=== PATIENT | male | born 1960 | race Caucasian/White ===

== ENCOUNTER 2020-03-16 10:58 | Emergency (ER) | payer OTHER, SELFPAY ==
[2020-03-16 11:19] VITALS: BP 148/87; PULSE 94; RESP 18; TEMP 36.9; O2SAT 97; BMI 23.5
--- NOTE | 2020-03-16 11:44 | ED.GENADULT ---
HPI - General Adult General Chief complaint: General Medical Stated complaint: sore throat Time Seen by Provider: 03/16/20 11:34 Source: patient Mode of arrival: ambulatory Limitations: no limitations History of Present Illness HPI narrative: 60 y/o male presenting with worsening sore throat for the last 4 days. He states he feels it is swollen on the left side of his neck. He states it hurts to swallow but he is able to eat and drink normally. No change in voice. Handling secretions normally. No fevers, chills, chest pain, SOB, cough. No exposure to COVID-19. MD complaint: sore thraot Onset (ago): day(s) (4) Location: neck Radiation: non-radiation Severity: severe Severity scale (1-10): 7 Quality: aching and sharp Pain Consistency: constant Relieving factors: none Exacerbating factors: eating Associated symptoms: denies other symptoms Treatments prior to arrival: none Related Data Previous Rx's Medication Instructions Recorded clindamycin HCl 300 mg PO Q6H 10 Days #40 cap 03/16/20 ibuprofen 600 mg PO Q8H PRN #20 tab 03/16/20 Allergies Allergy/AdvReac Type Severity Reaction Status Date / Time penicillin V Allergy Unknown reaction Verified 12/07/19 00:00 as a baby Penicillins Allergy Unknown UNKNOWN-CHILDHOOD Unverified 12/24/19 15:02 REACTION potassium Allergy Unknown Verified 12/07/19 00:00 Review of Systems Review of Systems: Constitutional: No Fever, No Chills ENT/Mouth: + sore throat, No Rhinorrhea, No Swallowing Difficulty, +painful swallowing Eyes: No Eye Pain, No Swelling, No Redness Cardiovascular: No Chest Pain, No SOB Respiratory: No Cough, No Sputum, No Wheezing, No dyspnea Gastrointestinal: No Nausea, No Vomiting, No Diarrhea, No abdominal Pain Musculoskeletal: No joint pain, No Myalgias Skin: No Skin Lesions, No rash Neuro: No Weakness, No Numbness, No Dizziness, No Headache Heme/Lymph: No Lymphadenopathy PMFSH Past Medical History Attestation statement: The following information was validated with the patient. Social History Social History Advance Directives: No Advance Directives Information Provided: Yes Physical Exam Vital Signs: Vital Signs: Last Vital Signs Temp 98.4 F 03/16/20 11:19 Pulse 94 03/16/20 11:19 Resp 18 03/16/20 11:19 BP 148/87 H 03/16/20 11:19 Pulse Ox 97 03/16/20 11:19 Body Mass Index 23.5 Appearance: Alert. Oriented X3. No acute distress. ENT: left sided peritonsillar swelling and erythema, no exudates. uvula midline. normal voice, handing secretions normal. dentition normal. Neck: Normal inspection. submandibular LAD, mild on the left CVS: Normal heart rate and rhythm. Pulses normal. Respiratory: No respiratory distress. Breath sounds normal. Skin: Skin warm and dry. Normal skin color. Normal skin turgor. No rashes. Extremities: No lower extremity edema. Neuro: Oriented X 3. Non-focal Course Course Course Narrative: 60 y/o male presenting with sore throat - exam consistent with evolving peritonsillar abscess. Less likely strep thoat. No hypoxia, no muffled voice or difficulty handling secretions. No indication to attempt drainage at this time. d/w Dr. Field. Given Clindamycin and Decadron here. Will have him see ENT and instructed to return to the ER if symptoms worsen, which is agreeable to. He is stable for discharge with antibiotics. Critical Care Time Critical Care Time Critical Care Time: No Discharge Plan Discharge Clinical Impression: Peritonsillar abscess Patient Disposition: Home, Self-Care Instructions: Peritonsillar Abscess (ED) Additional Instructions: Your exam is consistent with the start of an abscess around your tonsil on the left side. You are being started on antibiotics for this. If you have worsening pain or swelling, or if you develop difficulty swallowing, difficulty handling your own saliva, voice changes, fevers or any other concerning symptom come back to the ER for futher evaluation. Follow up with Ear, Nose & Throat doctor. Follow up with your doctor this week. Prescriptions: New clindamycin HCl 300 mg capsule 300 mg PO Q6H 10 Days Qty: 40 RF: 0 ibuprofen 600 mg tablet 600 mg PO Q8H PRN (Reason: fever or pain) Qty: 20 RF: 0 Referrals: Sigifredo Ibarra [Physician] - 2 days Interventions: ED Discharge Assessment Last Done: 03/16/20 12:14 Discharge Date/Time: 03/16/20 12:14
[2020-03-16] MEDS: dexAMETHasone 2 MG TABLET 10 MG PO (12:03)
== END 2020-03-16 12:14 | disposition home or self-care (01) ==
PROVIDERS: Emergency Provider Emergency Medicine; PCP Internal Medicine
DX: J36 Peritonsillar abscess (principal)
CPT/HCPCS: 87071; 87880; 99283; J8540

== ENCOUNTER 2020-11-05 17:03 | Emergency (ER) | payer OTHER, SELFPAY ==
[2020-11-05 17:10] VITALS: BP 167/77; PULSE 105; RESP 18; TEMP 36.8; O2SAT 96; BMI 26.6
--- NOTE | 2020-11-05 18:27 | ED_ITS ---
HPI - Wound/Laceration General Chief Complaint: Wound/Laceration Stated Complaint: lac Time Seen by Provider: 11/05/20 18:20 Source: patient Mode of arrival: ambulatory Limitations: no limitations History of Present Illness HPI narrative: 60-year-old male presents with laceration to his left hand. Patient slipped with a ammonia box tender and accidentally cut his hand. Does not know when his last Tdap was given. He did apply a pressure dressing however bleeding continues. Does not report any other symptoms at this time. Onset (ago): hour(s) (Within the hour of arrival) Extremity Location: left: hand Place: home Patient tetanus UTD: No Context: accidental Associated symptoms: pain Treatments prior to arrival: bandage Related Data Previous Rx's Medication Instructions Recorded clindamycin HCl 300 mg capsule 300 mg PO Q6H 10 Days #40 cap 03/16/20 ibuprofen 600 mg tablet 600 mg PO Q8H PRN #20 tab 03/16/20 Allergies Allergy/AdvReac Type Severity Reaction Status Date / Time penicillin V Allergy Unknown reaction Verified 11/05/20 17:10 as a baby Penicillins Allergy Unknown UNKNOWN-CHILDHOOD Unverified 11/05/20 17:10 REACTION potassium Allergy Unknown Unknown Verified 11/05/20 17:10 Review of Systems Review of Systems: Constitutional: No Fever, No Chills ENT/Mouth: No Ear Pain, No Hoarseness, No sore throat Eyes: No Eye Pain, No Swelling, No Redness, No Foreign Body Cardiovascular: No Chest Pain, No SOB Respiratory: No Cough, No Dyspnea Gastrointestinal: No Nausea, No Vomiting, No Diarrhea, No abdominal Pain Genitourinary: No Dysuria, No Hematuria Musculoskeletal: positive left hand pain, No Myalgias, No Joint Swelling Skin: Positive laceration to left hand, Skin lacerations, No rash Neuro: No Weakness, No Numbness, No Paresthesias, No Loss of Consciousness, No Dizziness, No Headache Psych: No Anxiety/Panic, No Depression Heme/Lymph: no easy bruising, no Lymphadenopathy Endocrine: No Polyuria, No Polydipsia Yes all other systems are reviewed and are negative [facility] Past Medical History Attestation statement: The following information was validated with the patient. Source: old records reviewed Medical History Diabetes Pneumonia Surgical History History of hand surgery Social History Social History Advance Directives: No Advance Directives Information Provided: No Physical Exam Vital Signs: Vital Signs: Last Vital Signs Temp 98.3 F 11/05/20 17:10 Pulse 105 H 11/05/20 17:10 Resp 18 11/05/20 17:10 BP 167/77 H 11/05/20 17:10 Pulse Ox 96 11/05/20 17:10 Body Mass Index 26.6 Appearance: Alert. Oriented X3. No acute distress. Eyes: Pupils equal, round and reactive to light. ENT: Pharynx normal. Neck: Normal inspection. Neck supple. CVS: Normal heart rate and rhythm. Pulses normal. Respiratory: No respiratory distress. Breath sounds normal. Abdomen: Soft and nontender. Skin: 4 cm laceration to the thenar process left side, Skin warm and dry. Normal skin color. Normal skin turgor. Extremities: No lower extremity edema. Moves all extremities against resistance, has brisk capillary refill and equal pulses to the upper extremities . Full range of motion to all digits, strength 5/5, no indication of tendon injury. Neuro: No motor deficit. No sensory deficit. Cranial nerves 2-12 intact, no focal neural deficits Course Course Course Narrative: 60-year-old male presents with laceration to the left thenar process. Will update Tdap vaccine. Please refer to procedure note for full details. Patient has full range of motion, no indication of tendon injury to the digits, brisk capillary refill in equal pulses to bilateral extremities. Prepped and draped in sterile fashion. Irrigated with copious amounts of normal saline with Betadine cleanse. Approximately 5 mL of blood loss, patient tolerated procedure well. Approximately 30 minutes after laceration repair, brisk capillary refill and full range of motion continues. Neurovascularly intact. Patient does understand that he must return in 10 days for suture removal. Patient verbalized understanding of and agrees to plan of care. MDM - Wound/Laceration Differential Diagnosis Differential diagnosis: Likely laceration Medical Records Attestation: I reviewed the patient's medical records. Procedures Laceration Laceration 1: Site: hand Side (If applicable): left Description: linear Depth: simple, single layer Local Anesthetic: lidocaine 2% Amount of anesthesia used (mL): 7 Pre-repair: wound explored, irrigated extensively and deep structures intact Skin layer closed with: nylon Size (cm): 5-0 Number of sutures: 9 Technique: simple, interrupted Discharge Plan Discharge Clinical Impression: Laceration Patient Disposition: Home, Self-Care Instructions: Care For Your Stitches (ED), Laceration (ED) Additional Instructions: You were evaluated for laceration to left hand. We applied 9 sutures. Please follow suture instructions. Return in 10 days to have sutures removed. We updated your Tdap vaccine today. Thank you for choosing this emergency department for evaluation. Please follow-up with primary care physician as needed. Return to the emergency department for any new, concerning, or worsening symptoms. Prescriptions: No Action clindamycin HCl 300 mg capsule 300 mg PO Q6H 10 Days Qty: 40 RF: 0 ibuprofen 600 mg tablet 600 mg PO Q8H PRN (Reason: fever or pain) Qty: 20 RF: 0 Interventions: ED Discharge Assessment Last Done: 11/05/20 19:37 Discharge Date/Time: 11/05/20 19:39
[2020-11-05] MEDS: Diphth,Pertus(ACell),Tet Adult 0.5 ML SYRINGE IM (19:26)
[2020-11-05] MEDS: Lidocaine HCl 2 % MPF 5 ML VIAL 10 ML SUBCUT (19:27)
== END 2020-11-05 19:39 | disposition home or self-care (01) ==
PROVIDERS: Emergency Provider Emergency Medicine Emergency Medical Services; PCP Internal Medicine
DX: S61.412A Laceration without foreign body of left hand, initial encounter (principal); W27.8XXA Contact with other nonpowered hand tool, initial encounter; Y93.89 Activity, other specified; Y92.9 Unspecified place or not applicable; Y99.9 Unspecified external cause status
CPT/HCPCS: 12002; 90471; 90715; 99284

== ENCOUNTER 2021-01-30 09:28 | Outpatient (REF) | payer MEDICARE, OTHER, SELFPAY | END 2021-01-30 09:29 | disposition home or self-care (01) | LOC: HO.LAB 09:28 | PROVIDERS: PCP Internal Medicine; Visit Provider Internal Medicine | DX: Z20.822 Contact with and (suspected) exposure to COVID-19 (principal) | CPT/HCPCS: C9803; U0003; U0005 ==

== ENCOUNTER 2021-02-24 11:16 | Outpatient (REF) | payer MEDICARE, OTHER, SELFPAY | END 2021-02-24 11:17 | disposition home or self-care (01) | LOC: HO.LAB 11:16 | PROVIDERS: PCP Internal Medicine; Visit Provider Internal Medicine | DX: Z20.822 Contact with and (suspected) exposure to COVID-19 (principal) | CPT/HCPCS: C9803; U0003; U0005 ==

== ENCOUNTER 2021-03-01 11:08 | Outpatient (REF) | payer MEDICARE, OTHER, SELFPAY | END 2021-03-01 11:09 | disposition home or self-care (01) | LOC: HO.LAB 11:08 | PROVIDERS: Visit Provider Internal Medicine | DX: Z20.822 Contact with and (suspected) exposure to COVID-19 (principal) | CPT/HCPCS: C9803; U0003; U0005 ==

== ENCOUNTER 2021-05-30 09:28 | Outpatient (REF) | payer MEDICARE, OTHER, SELFPAY ==
--- NOTE | ~2021-05-30 | CT_ITS ---
EXAMINATION: CT CHEST SCREENING CLINICAL INFORMATION: Current smoker. 53 pack-year history COMPARISON: Previous CT scans most recent October 2019 TECHNIQUE: Multidetector volumetric CT imaging of the chest is performed without contrast using low dose technique. Additional 2D coronal and sagittal reformatted images and axial 3D maximum intensity projection (MIP) images are generated on the CT workstation. This CT examination was performed using dose optimization techniques as appropriate, variously including the following: *Automated exposure control *Adjustment of mA and/or kV according to patient size (this includes techniques or standardized protocols for targeted exams where dose is matched to indication/reason for exam; i.e. extremities or head) *Use of iterative reconstruction technique DLP: 68 mGy-cm FINDINGS: LUNGS: There is evidence of mild emphysema. There is dependent atelectasis seen at the lung bases. The lungs are otherwise clear. MEDIASTINUM: There is significant coronary artery calcification. The mediastinum is otherwise normal. PLEURA: There is no pleural effusion. No pleural mass or thickening. AXILLA: No chest wall mass or enlarged axillary lymph nodes. The previously identified. Ill-defined area of increased attenuation in the subcutaneous fat of the left upper lateral chest pitt on October 2019 exam is no longer seen. UPPER ABDOMEN: Unremarkable OSSEOUS STRUCTURES: There are degenerative changes of the spine. CT/CT lung screening IMPRESSION: Mild emphysema. No pulmonary nodule. Significant coronary artery calcification. ASSESSMENT: Lung-RADS category 1S: Negative RECOMMENDATION: Annual low-dose chest CT follow-up recommended. S for significant coronary artery calcification.
== END 2021-05-30 09:29 | disposition home or self-care (01) ==
LOC: HO.CT 09:28
PROVIDERS: Visit Provider Physician Assistant Medical
DX: Z12.2 Encounter for screening for malignant neoplasm of respiratory organs (principal); Z87.891 Personal history of nicotine dependence
CPT/HCPCS: 71271

== ENCOUNTER → 2021-09-21 14:58 | Outpatient (BNVA) | payer MEDICARE, OTHER, SELFPAY | PROVIDERS: PCP Internal Medicine; Visit Provider Orthopaedic Surgery | DX: M19.012 Primary osteoarthritis, left shoulder (principal); M19.011 Primary osteoarthritis, right shoulder; M75.41 Impingement syndrome of right shoulder; E11.9 Type 2 diabetes mellitus without complications | CPT/HCPCS: 20610; 99202; J1100 ==

== ENCOUNTER → 2021-11-17 09:56 | Outpatient (BNVA) | payer MEDICARE, OTHER, SELFPAY | PROVIDERS: PCP Internal Medicine; Visit Provider Orthopaedic Surgery | DX: M75.41 Impingement syndrome of right shoulder (principal); M19.012 Primary osteoarthritis, left shoulder; E11.9 Type 2 diabetes mellitus without complications | CPT/HCPCS: 20610; 99212; J1100 ==

== ENCOUNTER 2021-12-05 10:00 | Outpatient (RCR) | payer MEDICARE, OTHER, SELFPAY ==
--- NOTE | 2021-10-10 11:14 | MHC.PT.EP ---
[facility] [place] Office [place] Office [place] Office [address] Renu Mancia [address] [phone] F: [phone] F: [phone] F: [phone] F: [phone] Physical Therapy Plan of Care Date of Evaluation: Date of Surgery: n/a Diagnosis: B OA of shoulders Assessment: Patient is a 61 year old male presenting to PT with complaints of pain in his B shoulders. Pt reports onset of pain began several years ago due to insidious onset but possibly related to an old volleyball injury. He presents today with impairments in pain, ROM, shoulder strength, and posture. 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 Pt expresses penitentiary goal of reducing pain, and is motivated to work towards this in PT. Clinical presentation today is most consistent with signs and sx associated with possible OA and RC tendonitis and pt will benefit from skilled PT to address the following problems and impairments noted upon evaluation: pain, ROM, shoulder strength, and posture. These problems limit the patient with the following functional activities: reaching, lifting, ADLs. The prescribed treatment plan of care is medically necessary. Co-morbidities of diabetes were identified and taken into considerations of plan of care. Pt was educated on HEP, role of PT, prognosis, POC. Frequency and Duration: The patient will be seen 2 x week x 4 weeks Short Term Goals: Pt will demonstrate improved ROM by 20 degrees B for flexion and abd in 2 weeks. Pt will demonstrate 5/5 MMT strength B in all directions with min to no pain in 2 weeks. Pt will demonstrate improved postural awareness by sitting with biomechanically correct posture without cues throughout session to improve overall postural function in 2 weeks. Usp Goals: Pt will demonstrate improved SPADI by 13 points in 4 weeks for improved overall functional mobility. Pt will demonstrate ability to reach OH with min to no pain in 4 weeks for improved role at home. Pt will demonstrate ability to complete ADLs with min to no pain in 4 weeks for return to PLOF. Treatment Plan: Modalities to reduce pain, spasms and effusion. Manual therapy to restore motion and function. Therapeutic exercise to improve strength and flexibility. Neuromuscular re-education for posture and balance. Therapeutic activities to return to functional activities of daily living. Electronically signed by: Alyssa Huang, PT, DPT, ATC Please sign and return to therapist. Thank you for your referral.
--- NOTE | 2021-12-05 10:55 | MHC.PT.DC ---
[facility] [place] Office [place] Office [place] Office [address] Renu Mancia [address] [phone] F: [phone] F: [phone] F: [phone] F: [phone] Physical Therapy Discharge Report Diagnosis: B OA of shoulders Date of Surgery: n/a Date of Evaluation: 10/10/21 Date of Discharge: 12/05/21 Treatments to Date: 11 Cancellations to Date: 2 No Shows to Date: 0 Discharge Status: Achieved Goals Improved Function Independent with HEP Discharge Summary: Pt has made good progress since beginning skilled PT. 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 Reviewed importance of continued compliance with HEP to maintain all gains made thus far. At this time pt has maximized skilled PT and skilled PT is no longer indicated at this time. Pt in agreement with d/c today. Electronically signed by: Alyssa Huang, PT, DPT, ATC Please sign and return to therapist. Thank you for your referral.
== END 2021-12-05 10:56 | disposition home or self-care (01) ==
LOC: HO.PTCHIC 10:00
PROVIDERS: PCP Internal Medicine; Visit Provider Orthopaedic Surgery
DX: M19.012 Primary osteoarthritis, left shoulder (principal); M19.011 Primary osteoarthritis, right shoulder
CPT/HCPCS: 97110; 97140; 97161

== ENCOUNTER 2022-05-17 12:00 | Outpatient (REF) | payer MEDICARE, SELFPAY ==
--- NOTE | ~2022-05-17 | XR_ITS ---
EXAMINATION: XR SHOULDER, LEFT CLINICAL INFORMATION: Left shoulder pain COMPARISON: None TECHNIQUE: Three views of the left shoulder. FINDINGS: Glenohumeral narrowing with marginal osteophytes. No fracture or dislocation. Moderate acromioclavicular osteoarthritis. XR/XR shoulder LT min 2V IMPRESSION: Moderate glenohumeral and acromioclavicular osteoarthritis. No fracture.
== END 2022-05-17 12:01 | disposition home or self-care (01) ==
LOC: HO.HMGCX 12:00
PROVIDERS: PCP Internal Medicine; Visit Provider Internal Medicine
DX: M25.512 Pain in left shoulder (principal)
CPT/HCPCS: 73030

== ENCOUNTER 2022-12-06 13:41 | Outpatient (REF) | payer MEDICARE, MEDICAID, SELFPAY ==
--- NOTE | ~2022-12-06 | US_ITS ---
EXAMINATION: US ABDOMEN LIMITED CLINICAL INFORMATION: Right inguinal pain. COMPARISON: None available. TECHNIQUE: Real-time imaging of the area of concern in the right lower quadrant as indicated by the patient. FINDINGS: The cutaneous, subcutaneous, muscular and fascial planes are unremarkable. The vascular structures show normal Doppler flow, without aneurysm formation. No mass or fluid collection is seen. There is no lymphadenopathy. No foreign body is seen. US/US abdomen limited IMPRESSION: Unremarkable examination.
== END 2022-12-06 13:42 | disposition home or self-care (01) ==
LOC: HO.US 13:41
PROVIDERS: PCP Internal Medicine; Visit Provider Family Medicine
DX: R10.31 Right lower quadrant pain (principal)
CPT/HCPCS: 76705

== ENCOUNTER 2022-12-13 13:37 | Outpatient (AMB) | payer MEDICARE, MEDICAID, SELFPAY ==
--- NOTE | 2022-12-13 13:39 | MHC.OFFVIS ---
Intake Vital Signs 12/13/22 13:42 Height 5 ft 6 in Weight 160 lb BMI 25.8 BP 125/80 Blood Pressure Location Rt brachial Position Sitting Pulse 98 Intake Visit Reasons: Right Inguinal Pain Intake Note: Patient referred for [facility]. Reports it was previously surgically excised by Dr. Barrow yrs ago. C/o pain and discomfort while going up and down stairs. Station Worker Required: No Accompanied by: Self / Same As Patient Allergies penicillin V Allergy (Unknown, Verified 12/13/22 13:45) reaction as a baby Penicillins Allergy (Unknown, Unverified 12/13/22 13:45) UNKNOWN-CHILDHOOD REACTION potassium Allergy (Unknown, Verified 12/13/22 13:45) Unknown Medication List - Last Reconciled 12/13/22 by Marty Mccall MD amitriptyline 25 mg PO BEDTIME aspirin 81 mg PO DAILY diclofenac sodium 50 mg PO BID 10 days ezetimibe 10 mg PO DAILY ibuprofen 600 mg PO Q8H PRN metformin ER 1,000 mg PO QPM semaglutide (Ozempic) 2 mg subcut QWEEK HPI HPI Comments History of Present Illness Details 62-year-old male patient presenting for evaluation of a recurrent right inguinal hernia. He previously underwent repair of a right inguinal hernia by Dr. Barrow on 07/05/2016 using a plug and patch technique. Several months ago he began to note some pain in the right groin which he described as feeling a muscle pull. This increased several weeks ago while helping his daughter install pull. He was moving cinder blocks for a prolonged period of time and noted increased pain the next morning. Feels some swelling in the right groin with associated pain. The pain is present all the time and does seem to change with activities. He denies nausea, vomiting, fever, chills, diarrhea or constipation. An ultrasound of the right groin revealed no evidence of recurrent hernia. [facility], [facility] Medical History Recurrent right inguinal hernia Pneumonia Diabetes Surgical History History of hand surgery Social History Alcohol intake: current Alcohol intake frequency: holidays/special occasions only Alcohol type: beer Tobacco use type: Cigarette Cigarettes Per Day: 15 Current occupational status: disabled Review of Systems Const All systems reviewed & are unremarkable except as noted in HPI and below Denies chills, Denies fever(s), Denies headache(s), Denies poor appetite and Denies weakness ENT Denies headache(s) Card Denies chest pain, Denies irregular heart rhythm, Denies palpitations and Denies dyspnea Resp Denies cough, Denies excessive phlegm production and Denies dyspnea GI Reports abdominal pain (Right inguinal pain), Denies bloating, Denies change in bowel habits, Denies constipation, Denies heartburn, Denies diarrhea, Denies nausea and Denies vomiting Denies difficulty urinating and Denies urinary frequency Musc Denies back pain, Denies muscle weakness and Denies numbness Skin/Breast Denies changing lesions and Denies unusual bruising Neuro Denies headache(s), Denies numbness, Denies paresthesias and Denies weakness Psych Denies anxiety and Denies depression Endo Denies palpitations Yousuf/Lymph Denies lymphadenopathy Physical Exam Vital Signs: Last Vital Signs Pulse 98 12/13/22 13:42 BP 125/80 12/13/22 13:42 BMI result Body Mass Index 25.8 Const General: cooperative and no acute distress Nutritional Appearance: well nourished Orientation/consciousness: patient oriented x3 Limitations: no limitations HEENT Head: Yes normocephalic and Yes atraumatic Ears: hearing grossly normal bilaterally Resp Effort & Inspection: normal respiratory effort, no audible wheezes, no cough and no respiratory distress Cardio Jugular venous distension: no JVD GI Other: No palpable hernia noted with Valsalva maneuvers in the standing position with palpation through the inguinal canal. Findings are suggestive of a muscle strain. No overlying skin changes are appreciated. Inspection: Yes normal to inspection Skin Other: Warm, dry, no rash Neuro General: patient oriented x3 Extrem General: Yes no clubbing, cyanosis or edema Assessment & Plan Assessment & Plan (1) Recurrent right inguinal hernia: Code(s): K40.91 - Unilateral inguinal hernia, without obstruction or gangrene, recurrent Plan 62-year-old male patient presenting with pain in the right groin following a previous hernia repair in 2017. The pain began after lifting heavy objects several weeks ago. An ultrasound evaluation was negative for recurrent hernia. Examination today revealed no hernia wall in the standing position with Valsalva maneuvers. His examination is most consistent with a muscle strain perhaps due to scar tissue from the previous repair. I recommended a period of rest relaxation and suggested applying warm compresses, heating pad or taking a warm bath for symptomatic relief. He should follow up as needed. Coding Level of Care Code New Pt Level 4 (65273) Diagnoses Recurrent right inguinal hernia K40.91
[2022-12-13 13:42] VITALS: BP 125/80; PULSE 98; BMI 25.8
== END 2022-12-13 14:08 | disposition home or self-care (01) ==
PROVIDERS: PCP Internal Medicine; Referring Provider Family Medicine; Visit Provider Surgery
DX: K40.91 Unilateral inguinal hernia, without obstruction or gangrene, recurrent (principal)
CPT/HCPCS: 99203

== ENCOUNTER → 2022-12-13 13:37 | Outpatient (BNVA) | payer MEDICARE, MEDICAID, SELFPAY | PROVIDERS: PCP Internal Medicine; Referring Provider Family Medicine; Visit Provider Surgery ==

== ENCOUNTER 2023-01-15 14:57 | Outpatient (REF) | payer MEDICARE, MEDICAID, SELFPAY | END 2023-01-15 14:58 | disposition home or self-care (01) | LOC: HO.CHCLDS 14:57 | PROVIDERS: Visit Provider Internal Medicine | DX: Z13.89 Encounter for screening for other disorder (principal) ==

== ENCOUNTER 2023-01-16 08:07 | Outpatient (REF) | payer MEDICARE, MEDICAID, SELFPAY ==
[2023-01-16 14:54] LABS: Anion Gap 14 (12-20); Blood Urea Nitrogen 4 mg/dL (9-16); Calcium 9.1 mg/dL (8.4-10.2); Carbon Dioxide 27 mmol/L (22-29); Chloride 102 mmol/L (96-108); Estimated Glomerular Filt Rate > 60; Glucose Fasting 145 mg/dL (60-99); Potassium 4.3 mmol/L (3.3-5.1); Sodium 139 mmol/L (135-145)
[2023-01-16 15:13] LABS: TSH reflex Free T4 0.58 uIU/mL (0.32-4.0)
[2023-01-20 12:18] LABS: Vitamin B6 4.3 ng/mL (2.1-21.7)
== END 2023-01-16 08:08 | disposition home or self-care (01) ==
LOC: HO.CHCLDS 08:07
PROVIDERS: Visit Provider Internal Medicine
DX: R20.2 Paresthesia of skin (principal)
CPT/HCPCS: 36415; 80048; 82607; 84207; 84443

== ENCOUNTER 2023-03-26 16:12 | Outpatient (REF) | payer MEDICARE, MEDICAID, SELFPAY ==
--- NOTE | ~2023-03-26 | CT_ITS ---
EXAMINATION: CT CHEST SCREENING CLINICAL INFORMATION: Nicotine dependence COMPARISON: Previous CTs, most recent, 05/30/2021 TECHNIQUE: Multidetector volumetric CT imaging of the chest is performed without contrast using low dose technique. Additional 2D coronal and sagittal reformatted images and axial 3D maximum intensity projection (MIP) images are generated on the CT workstation. This CT examination was performed using dose optimization techniques as appropriate, variously including the following: *Automated exposure control *Adjustment of mA and/or kV according to patient size (this includes techniques or standardized protocols for targeted exams where dose is matched to indication/reason for exam; i.e. extremities or head) *Use of iterative reconstruction technique DLP: 47 mGy-cm FINDINGS: TREASURY ANALYST: Unremarkable. LUNGS: Trachea and bronchi are patent. Scattered atelectasis. Increased reticular markings at the right costophrenic angle, having shown progression from 2020. Since the most recent 2021 study, in addition to increasing reticular markings in the right lower lobe, there has been interval development subpleural nodular density with possible internal cavitation measuring 8 mm coronal 7/69, sagittal 8/101. Regional increasing subpleural cystic changes are also seen, see coronal 7:67 through 69, axial 6:353-357. MEDIASTINUM: Unremarkable thyroid. Nonenlarged heart. No pericardial effusion. Nonenlarged pulmonary arteries with atherosclerotic calcifications. Nonenlarged pulmonary arteries. CORONARY ARTERY CALCIFICATION: Severe PLEURA: There is no pleural effusion. No pleural mass or thickening. AXILLA: No lymphadenopathy. UPPER ABDOMEN: Unremarkable OSSEOUS STRUCTURES: No suspicious osseous lesions. CT/CT lung screening IMPRESSION: Increasing right lower lobe/costophrenic angle reticular markings, cystic changes and 8 mm solid subpleural nodular density with possible cavitation. ASSESSMENT: Lung-RADS category 4B: Suspicious RECOMMENDATION: PET/CT and/or tissue sampling. One month LDCT may be recommended to address potential infectious or inflammatory conditions. At the time of this dictation, PSA service contacted to alert referring physician as to findings and recommendations.
== END 2023-03-26 16:13 | disposition home or self-care (01) ==
LOC: HO.CT 16:12
PROVIDERS: PCP Internal Medicine; Visit Provider Physician Assistant Medical
DX: Z12.2 Encounter for screening for malignant neoplasm of respiratory organs (principal); Z87.891 Personal history of nicotine dependence
CPT/HCPCS: 71271

== ENCOUNTER 2023-04-19 09:51 | Outpatient (REF) | payer MEDICARE, MEDICAID, SELFPAY ==
[2023-04-21 20:54] LABS: TS Negative Control Passed; TS Panel A 0; TS Panel B 0; TS Positive Control Passed; TSpotTB Negative (Negative)
== END 2023-04-19 09:52 | disposition home or self-care (01) ==
LOC: HO.CHCLDS 09:51
PROVIDERS: Visit Provider Internal Medicine
DX: J94.9 Pleural condition, unspecified (principal); J98.4 Other disorders of lung
CPT/HCPCS: 36415; 86481

== ENCOUNTER 2023-04-26 09:32 | Outpatient (AMB) | payer MEDICARE, MEDICAID, SELFPAY ==
[2023-04-26 09:43] VITALS: BP 124/70; PULSE 88; O2SAT 98; BMI 25.1
--- NOTE | 2023-04-26 09:43 | MHC.OFFVIS ---
Intake Vital Signs 04/26/23 09:43 Height 5 ft 6 in Weight 155 lb 6.814 oz BMI 25.1 BP 124/70 Blood Pressure Location Lt brachial Position Sitting Pulse 88 Pulse Source Pulse Oximeter Pulse Oximetry (%) 98 Oxygen Delivery Method Room Air Intake Visit Reasons: Abnormal CT scan Rn Progressive Care Unit Required: No Allergies Penicillins Allergy (Unknown, Unverified 04/26/23 09:46) UNKNOWN-CHILDHOOD REACTION HPI HPI Comments History of Present Illness Details The patient is here for pulmonary evaluation. The patient is a very nice 63-year-old gentleman with a history of smoking who apparently is participating in the lung cancer screening program. He had a CT scan demonstrating worsening pulmonary nodule. Therefore he is scheduled to have repeat CT scan. The meantime the patient was referred over to be evaluated. He has is a very active gentleman he does get some dyspnea on exertion minimal. Intermittent cough. Typically nonproductive. Denies any weight loss or night sweats. He denies any decreased appetite. We did review his CT scan of the chest that he did have. First, he did have significant calcifications of the coronary arteries more than typical for his age. He denies any chest pains although with dyspnea on exertion will be prudent just to get a stress test. In the meantime the patient does have evidence of areas that are more hazy ground-glass in nature suggesting some component of pneumonitis. Will go ahead and request blood work to address for the possibility of inflammatory process. The patient already is scheduled to undergo a repeat CT scan to follow-up with the nodular density. As far as respiratory medications will hold off at this point until after his PFTs. [facility] Medical History (Updated 04/26/23 @ 12:50 by Wu Cruz MD) Coronary artery calcification Pulmonary nodules Pneumonitis Dyspnea Recurrent right inguinal hernia Pneumonia Diabetes Surgical History History of hand surgery Social History Alcohol intake: current Alcohol intake frequency: holidays/special occasions only Alcohol type: beer Tobacco use type: Cigarette Cigarettes Per Day: 15 Current occupational status: disabled Review of Systems Const Denies fever(s) and Denies weight loss Eyes Reports no additional complaints ENT Denies nasal congestion Card Denies chest pain and Reports dyspnea on exertion Resp Reports cough, Reports dyspnea on exertion and Denies wheezing GI Reports no additional complaints Musc Reports no additional complaints Skin/Breast Denies rash Neuro Reports no additional complaints Yousuf/Lymph Denies lymphadenopathy Aller/Immun Denies wheezing Physical Exam Vital Signs: Last Vital Signs Pulse 88 04/26/23 09:43 BP 124/70 04/26/23 09:43 Pulse Ox 98 04/26/23 09:43 Oxygen Delivery Method Room Air 04/26/23 09:43 BMI result Body Mass Index 25.1 Const General: comfortable HEENT Head: Yes normocephalic Neck Neck: Yes supple Chest Chest palpation & inspection: normal inspection of the chest Resp Effort & Inspection: normal respiratory effort Auscultation: clear to auscultation bilaterally, no rales, no rhonchi and no wheezes Cardio Heart sounds: S1 normal heart sound present and S2 normal heart sound present GI Palpation (GI): Soft to palpation Skin General skin exam: no rashes or lesions noted Extrem General: Yes no clubbing, cyanosis or edema Assessment & Plan Assessment & Plan (1) Pneumonitis: Code(s): J98.4 - Other disorders of lung (2) Dyspnea: Code(s): R06.00 - Dyspnea, unspecified Qualifiers: Dyspnea type: dyspnea on exertion Qualified Code(s): R06.09 - Other forms of dyspnea (3) Pulmonary nodules: Code(s): R91.8 - Other nonspecific abnormal finding of lung field (4) Coronary artery calcification: Code(s): I25.10 - Atherosclerotic heart disease of [place] coronary artery without angina pectoris; I25.84 - Coronary atherosclerosis due to calcified coronary lesion Plan PFTs Stress ECHO CT chest through LDCT program in 1-2 weeks Bloodwork F/U 3-4 months Orders: Orders PFT pulmonary function test Today R06.00 - Dyspnea, unspecified CA cardiopulmonary stress test Today R06.00 - Dyspnea, unspecified Erythrocyte Sedimentation Rate Today J98.4 - Other disorders of lung Immunoglobulin E Today J98.4 - Other disorders of lung Complete Blood Count Auto Diff Today J98.4 - Other disorders of lung CARLOS Reflex Titer and Pattern Today J98.4 - Other disorders of lung Hypersensitive Pneumonitis Prf Today J98.4 - Other disorders of lung, R91.8 - Other nonspecific abnormal finding of lung field Coding Level of Care Code New Pt Level 4 (25207) Diagnoses Pneumonitis J98.4 Dyspnea on exertion R06.09 Dyspnea type: dyspnea on exertion Pulmonary nodules R91.8 Coronary artery calcification I25.10; I25.84 Time Spent (min) 40
== END 2023-04-26 10:18 | disposition home or self-care (01) ==
PROVIDERS: PCP Internal Medicine; Visit Provider Hospitalist
DX: J98.4 Other disorders of lung (principal); R06.09 Other forms of dyspnea; R91.8 Other nonspecific abnormal finding of lung field; I25.10 Atherosclerotic heart disease of native coronary artery without angina pectoris; I25.84 Coronary atherosclerosis due to calcified coronary lesion
CPT/HCPCS: 99204

== ENCOUNTER → 2023-04-26 09:32 | Outpatient (BNVA) | payer MEDICARE, MEDICAID, SELFPAY | PROVIDERS: PCP Internal Medicine; Visit Provider Hospitalist | DX: J98.4 Other disorders of lung (principal); R06.09 Other forms of dyspnea; R91.8 Other nonspecific abnormal finding of lung field; I25.10 Atherosclerotic heart disease of native coronary artery without angina pectoris; I25.84 Coronary atherosclerosis due to calcified coronary lesion | CPT/HCPCS: 99202 ==

== ENCOUNTER 2023-04-30 09:03 | Outpatient (REF) | payer MEDICARE, MEDICAID, SELFPAY ==
[2023-04-30 09:36] LABS: MANUAL DIFF FLAG NO
[2023-04-30 10:13] LABS: Basophils Absolute Auto 0.1 X10*3/uL (0.0-0.2); Basophils Percent Auto 0.6 % (0-2); Eosinophils Absolute Auto 0.1 X10*3/uL (0.0-0.4); Eosinophils Percent Auto 1.4 % (0-4); Hematocrit 39.5 % (42.0-52.0); Hemoglobin 13.1 g/dl (14.0-18.0); Imm Gran Abs Auto 0.02 X10*3/uL (0.00-0.03); Imm Gran Pct Auto 0.2 % (0.0-0.4); Lymphocytes Absolute Auto 1.6 X10*3/uL (1.2-4.9); Lymphocytes Percent Auto 19.6 % (20-40); Mean Corpuscular HGB Conc 33.2 g/dl (31.0-36.0); Mean Corpuscular Hemoglobin 31.7 pg (27.0-33.0); Mean Corpuscular Volume 95.6 fL (80.0-98.0); Mean Platelet Volume 9.3 fL (9.4-12.4); Monocytes Absolute Auto 0.6 X10*3/uL (0.1-1.2); Monocytes Percent Auto 6.8 % (2-11); Neutrophils Absolute Auto 5.8 x10*3/uL (2.0-8.3); Neutrophils Percent Auto 71.4 % (45-73); Platelet Count 214 X10*3/uL (160-400); Red Blood Count 4.13 X10*6/uL (4.60-5.80); Red Cell Distribution Width 12.4 % (11.0-16.0); White Blood Count 8.1 X10*3/uL (4.8-10.8)
[2023-04-30 10:49] LABS: Erythrocyte Sedimentation Rate 12 MM/HR (0-15)
[2023-05-05 11:18] LABS: Immunoglobulin E <2 kU/L (<OR=114)
[2023-05-06 15:04] LABS: Asperg fumigatus Precip Abs NEGATIVE (NEGATIVE); Micropoly faeni Abs NEGATIVE (NEGATIVE); Pigeon serum Abs NEGATIVE (NEGATIVE); Saccharo pora viridis Abs NEGATIVE (NEGATIVE); Thermo candidus Abs NEGATIVE (NEGATIVE); Thermoa vulgaris #1 NEGATIVE (NEGATIVE)
[2023-05-07 11:19] LABS: Anti Nuclear Antibody Screen NEGATIVE (NEGATIVE)
== END 2023-04-30 09:04 | disposition home or self-care (01) ==
LOC: HO.LAB 09:03
PROVIDERS: PCP Internal Medicine; Visit Provider Hospitalist
DX: J98.4 Other disorders of lung (principal); R91.8 Other nonspecific abnormal finding of lung field
CPT/HCPCS: 36415; 82785; 85025; 85652; 86038; 86331; 86606; 86609

== ENCOUNTER 2023-06-03 09:30 | Outpatient (REF) | payer MEDICARE, MEDICAID, SELFPAY ==
[2023-06-03 10:45] VITALS: PULSE 94; RESP 16; O2SAT 97
--- NOTE | 2023-06-03 14:36 | PFT_ITS ---
Flows: FEV1: 93 % of predicted at 2.87 L FVC: 91 % of predicted at 3.59 L FEV1/FVC: 80 % Bronchodilator response: Absent Volumes: No lung volumes measurements available secondary to a technical issue. Diffusion capacity: Normal Impression: No obstructive ventilatory defect. No bronchodilator response. No lung volumes measurements available secondary to a technical issue. MTDD
== END 2023-06-03 09:31 | disposition home or self-care (01) ==
LOC: HO.RESP 09:30
PROVIDERS: PCP Internal Medicine; Visit Provider Hospitalist
DX: R06.00 Dyspnea, unspecified (principal)
CPT/HCPCS: 94010; 94640; 94727; 94729

== ENCOUNTER → 2023-06-03 14:36 | Outpatient (BNV) | payer MEDICARE, MEDICAID, SELFPAY | PROVIDERS: PCP Internal Medicine; Visit Provider Internal Medicine Pulmonary Disease | DX: R06.00 Dyspnea, unspecified (principal) | CPT/HCPCS: 94060; 94729 ==

== ENCOUNTER 2023-07-23 09:34 | Outpatient (REF) | payer MEDICARE, MEDICAID, SELFPAY ==
--- NOTE | ~2023-07-23 | CT_ITS ---
EXAMINATION: CT CHEST SCREENING CLINICAL INFORMATION: Solitary pulmonary nodule. The patient is a current smoker with a 49 pack-year history of smoking. COMPARISON: CT chest 03/26/2023: New 8 mm solid subpleural nodular density with possible cavitation. TECHNIQUE: Multidetector volumetric CT imaging of the chest is performed without contrast using low dose technique. Additional 2D coronal and sagittal reformatted images and axial 3D maximum intensity projection (MIP) images are generated on the CT workstation. This CT examination was performed using dose optimization techniques as appropriate, variously including the following: *Automated exposure control *Adjustment of mA and/or kV according to patient size (this includes techniques or standardized protocols for targeted exams where dose is matched to indication/reason for exam; i.e. extremities or head) *Use of iterative reconstruction technique DLP: 44 mGy-cm FINDINGS: LUNGS: Mild emphysematous changes are present. Peribronchial thickening is noted. No suspicious lung nodules are seen. The previously seen 8 mm solid subpleural nodule with cavitation is not seen on the current study and was probably inflammatory. Some mild subpleural reticulation is seen at the right lung base posterolaterally similar to prior. At this time, no worrisome pulmonary nodule is seen. MEDIASTINUM: The mediastinum is normal. CORONARY ARTERY CALCIFICATION: Extensive. PLEURA: There is no pleural effusion. No pleural mass or thickening. AXILLA: No lymphadenopathy. UPPER ABDOMEN: Unremarkable. OSSEOUS STRUCTURES: Unremarkable. CT/CT lung screen follow up IMPRESSION: Resolved 8 mm cavitary lesion previously noted in the right lower lobe; presumably this was inflammatory in nature. No concerning nodule seen to suggest malignancy. ASSESSMENT: Lung-RADS category 2: Benign RECOMMENDATION: Routine annual low-dose CT screening in 12 months.
== END 2023-07-23 09:35 | disposition home or self-care (01) ==
LOC: HO.CT 09:34
PROVIDERS: PCP Internal Medicine; Visit Provider Nurse Practitioner Family
DX: R91.1 Solitary pulmonary nodule (principal)
CPT/HCPCS: 71250

== ENCOUNTER 2023-07-31 09:22 | Outpatient (REF) | payer MEDICARE, MEDICAID, SELFPAY ==
[2023-07-31 17:01] LABS: Cholesterol 155 mg/dL (<200); HDL Cholesterol 59 mg/dL (>40); LDL Cholesterol Calculated 86 mg/dL (<100); Triglycerides 50 mg/dL (<150)
[2023-07-31 17:14] LABS: Creatinine Urine 49.93 mg/dL; Microalbumin Urine < 5.0 mg/L
== END 2023-07-31 09:23 | disposition home or self-care (01) ==
LOC: HO.CHCLDS 09:22
PROVIDERS: Visit Provider Internal Medicine
DX: I10 Essential (primary) hypertension (principal); E11.40 Type 2 diabetes mellitus with diabetic neuropathy, unspecified; Z79.4 Long term (current) use of insulin
CPT/HCPCS: 36415; 80061; 82043; 82570

== ENCOUNTER 2024-05-22 10:22 | Outpatient (REF) | payer MEDICARE, SELFPAY ==
--- OUTSIDE RECORDS SUMMARY | 2024-05-22 11:13 | XMS_ITS | Encounter Summary ---
Author Organization [facility] Address [address] [place] [address] Care Team Providers Care Box Lining Machine Operator Name Role Phone Jeny Christiansen MD Primary Care Provider [phone] Ernst Stratton PharmD Unavailable Unavail able Encounter Details Date Type Department Care Team (Late st Contact Info) Description 01/01/2023 Orders Only [facility] [address] [place] [address] Jeny Christiansen MD [address] [place] [address] Screening for colon cancer Social History Tobacco Use Types Packs/Day Years Used Date Smoking Tobacco: Every Day Cigarettes 0.5 39 Smokeless Tobacco: Never Depression Answer Date Recorded Patient Health Questionnaire-9 Score 0 04/12/2022 Depression Answer Date Recorded Patient Health Questionnaire-2 Score 0 04/12/2022 Sex and Gender Information Value Date Recorded Sex Assigned at Male 02/05/2022 10:20 AM EDT Legal Sex Male 10:20 AM EDT Gender Identity Male 02/05/2022 10:20 AM EDT Sexual Orientation Straight 02/05/2022 10 :20 AM EDT documented as of this encounter Plan of Treatment Upcoming Encounters Date Type Department Care Team (Late st Contact Info) Description 06/17/2024 9:30 AM EDT Medication Management [facility] [address] [place] [address] Dinora Rocha, PharmD [address] [place] [address] 07/14/2024 9:00 AM EDT Office Visit [facility] [address] [place] [address] Jeny Christiansen MD [address] [place] [address] documented as of this encounter Goals Goal Patient Goal Type Associated Problems Recent Progress Patient-Stated? Author Hemoglobin A1c < 7 Result Component 10.9( 11:28 AM EST) No Ernst Stratton, PharmD documented as of this encounter Procedures Procedure Name Priority Date/Time Associated Diagnosis Comments LAB COLOGUARD?? COLON CANCER SCREEN Routine 01/09/2023 8:52 AM EDT Screening for colon cancer documented in this encounter Results * Cologuard?? colon cancer screening (01/09/2023 8:52 AM EDT) Cologuard Result Negative Negative 01/18/20 2:29 AM EDT [employer] (CLIA #:[id number]) Comment: NEGATIVE TEST RESULT. A negative Cologuard result indicates a low likelihood that a colorectal cancer (CRC) or advanced adenoma (adenomatous polyps with more advanced pre-malignant features) ??is present. The chance that a person with a negative Cologuard test has a colorectal cancer is less than 1 in 1500 (negative predictive value >99.9%) or has an ??advanced adenoma is less than ??5.3% (negative predictive value 94.7%). These data are based on a prospective cross-sectional study of 10,000 individuals at average risk for colorectal cancer who were screened with both Cologuard and colonoscopy. (Norma Quinn et al, N Engl J Med 2014;370(14):1286- 1297) The normal value (reference range) for this assay is negative. COLOGUARD RE-SCREENING RECOMMENDATION: Periodic colorectal cancer screening is an important part of preventive healthcare for asymptomatic individuals at average risk for colorectal cancer. ??Following a negative Cologuard result, the [place] Cancer Society and U.S. Multi-Society Task Force screening guidelines recommend a Cologuard re-screening interval of 3 years. References: [employer] Cancer Society Guideline for Colorectal Cancer Screening: https://www.cancer.org/cancer/zaxgk-jtmfen-cznkvr/jmzjtlfvf-ptiommxtv-mqrjfmg/ac s-rec ommendations.html.; Micahel TAYLOR, Sanjiv NUNEZ, Vickie FERRELL, Colorectal Cancer Screening: Recommendations for Physicians and Patients from the U.S. Multi-Society Task Force on Colorectal Cancer Screening , Am J Gastroenterology 2017; 112:2812-8402. TEST DESCRIPTION: Composite algorithmic analysis of stool DNA-biomarkers with hemoglobin immunoassay. ?? Quantitative values of individual biomarkers are not reportable and are not associated with individual biomarker result reference ranges. Cologuard is intended for colorectal cancer screening of adults of either sex, 45 years or older, who are at average-risk for colorectal cancer (CRC). Cologuard has been approved for use by the U.S. FDA. The performance of Cologuard was established in a cross sectional study of average-risk adults aged 50-84. Cologuard performance in patients ages 45 to 49 years was estimated by sub-group analysis of near-age groups. Colonoscopies performed for a positive result may find as the most clinically significant lesion: colorectal cancer [4.0%], advanced adenoma (including sessile serrated polyps greater than or equal to 1cm diameter) [20%] or non- advanced adenoma [31%]; or no colorectal neoplasia [45%]. These estimates are derived from a prospective cross-sectional screening study of 10,000 individuals at average risk for colorectal cancer who were screened with both Cologuard and colonoscopy. (Norma Figueroa. et al, N Engl J Med 2014;370(14):4326-6285.) Cologuard may produce a false negative or false positive result (no colorectal cancer or precancerous polyp present at colonoscopy follow up). A negative Cologuard test result does not guarantee the absence of CRC or advanced adenoma (pre-cancer). The current Cologuard screening interval is every 3 years. ([employer] Cancer Society and U.S. Multi-Society Task Force). Cologuard performance data in a 10,000 patient pivotal study using colonoscopy as the reference method can be accessed at the following location: www.fflap/results. Additional description of the Cologuard test process, warnings and precautions can be found at www.cologuard.com. Stool specimen (specimen) 01/09/2023 8:52 AM EDT 01/10/2023 5:38 PM EDT Jeny Christiansen MD LAB MOLECULAR DIAGNOSTICS O RDERABLES Final Result [employer] (CLIA #:[id number]) [address] [place] [address], documented in this encounter Visit Diagnoses Diagnosis Screening for colon cancer Special screening for malignant neoplasms, colon documented in this encounter Additional Health Concerns Assessment Noted Time PHQ-9 Depression Total Score: 0 04/12/19 10:53 AM EST documented as of this encounter Care Teams Box Lining Machine Operator Relationship Specialty Start Date End Date Jeny Christiansen MD [address] [facility] [place] [address] PCP - General Internal Medicine 12/16/15 Ernst Stratton PharmD [address] [facility] [place] [address] Pharmacist Internal Medicine 05/10/22 documented as of this encounter
--- OUTSIDE RECORDS SUMMARY | 2024-05-22 11:14 | XMS_ITS | Encounter Summary ---
Author Organization [employer] Address [address] [place] [address] Care Team Providers Care Edge Sawyer Name Role Phone Jeny Christiansen MD Primary Care Provider [phone] Ernst Stratton PharmD Unavailable Unavail able Encounter Details Date Type Department Care Team (Latest Contact Info) Description 05/22/2024 Travel Social History Tobacco Use Types Packs/Day Years Used Date Smoking Tobacco: Every Day Cigarettes 1 39 Passive Smoke Exposure: Current Smokeless Tobacco: Never Depression Answer Date Recorded Patient Health Questionnaire-9 Score 18 05/06/2024 Patient Health Questionnaire-9 Score 18 05/06/2024 Last PHQ-9: Questionnaire Data Not on file 0 05/06/2024 Housing Stability Answer Date Recorded What is your housing situation today? I have gale goff 05/06/[address] you li ve. Do you have problems with any of the following? None of the above 05/06/2024 Food Insecurity Answer Date Recorded Within the past 12 months, y ou worried that your food would run out before you got money to buy more: Sometimes True 2024 Within the past 12 months,th e food you bought just didn't last and you didn't have enough money to get more: Sometimes True 05/06/2024 Transportation Answer Date Recorded In the past 12 months, has l ack of transportation kept you from medical appts, meetings, work or from getting things needed for daily living? No 05/06/2024 Utilities Answer Date Recorded In the past 12 months, has t he electric, gas, oil or water company threatened to shut off services in your home? No 05/06/2024 Depression Answer Date Recorded Patient Health Questionnaire-2 Score 5 05/06/2024 Internet Access Answer Date Recorded Internet Access Q1 Yes 05/06/2024 Internet Access Q2 Not on file 05/06/2024 Sex and Gender Information Value Date Recorded Sex Assigned at Male 02/05/2022 10:20 AM EDT Legal Sex Male 10:20 AM EDT Gender Identity Male 02/05/2022 10:20 AM EDT Sexual Orientation Straight 02/05/2022 10 :20 AM EDT documented as of this encounter Plan of Treatment Upcoming Encounters Date Type Department Care Team (Late st Contact Info) Description 06/17/2024 9:30 AM EDT Medication Management [facility] [address] [place] [address] Dinora Rocha PharmD [address] [place] [address] 07/14/2024 9:00 AM EDT Office Visit [facility] [address] [place] [address] Jeny Christiansen MD [address] [place] [address] documented as of this encounter Goals Goal Patient Goal Type Associated Problems Recent Progress Patient-Stated? Author Hemoglobin A1c < 7 Result Component 10.9( 11:28 AM EST) No Ernst Stratton PharmD documented as of this encounter Visit Diagnoses Not on filedocumented in this encounter Additional Health Concerns Assessment Noted Time PHQ-9 Depression Total Score: 18 025 11:09 AM EST documented as of this encounter Care Teams Edge Sawyer Relationship Specialty Start Date End Date Jeny Christiansen MD [address] [place] [address] PCP - General Internal Medicine 12/16/15 Ernst Stratton PharmD [address] [place] [address] Pharmacist Internal Medicine 05/10/22 documented as of this encounter
--- OUTSIDE RECORDS SUMMARY | 2024-05-22 11:14 | XMS_ITS | Clinical Summary ---
Author Organization [employer] Address [address] [facility] [address] [place] [address] Care Team Providers Care Medication Reconciliation Technician Name Role Phone Jeny Christiansen MD Primary Care Provider [phone] Ernst Stratton PharmD Unavailable Unavail able Allergies Active Allergy Reactions Criticality Noted Date Comments Penicillin G 11/28/2023 Penicillins Unknown 03/27/2022 Medications diclofenac (Voltaren) 50 MG EC tabletIndicat ions:Chronic right shoulder pain TAKE ONE TABLET BY MOUTH TWICE DAILY 60 tablet 03/21/20 22 Active cholecalcifer ol (Vitamin D-3) 25 MCG tablet Take 25 mcg by mouth in the morning. 02/13/20 22 Active glimepiride (Amaryl) 2 MG tablet TAKE ONE TABLET BY MOUTH THREE TIMES DAILY BEFORE MEALS 03/21/20 22 Active Lancets 33G miscIndicatio ns:Type 2 diabetes mellitus with diabetic neuropathy, with long-term current use of insulin ([facility]) Use test blood sugar three times daily 100 each 11 08/08/19 23 Active Diclofenac Sodium 1 % gelIndication s:Costochondr itis APPLY TWO GRAM TO THE AFFECTED AREA(s) THREE TO FOUR TIMES DAILY 100 g 1 10/27/19 23 Active rosuvastatin (Crestor) 10 MG tabletIndicat ions:Type 2 diabetes mellitus with diabetic neuropathy, with long-term current use of insulin ([facility]) TAKE ONE TABLET DAILY 30 tablet 2 06/21/19 24 Active Ozempic, 2 MG/DOSE, 8 MG/3ML solution pen-injector INJECT TWO MG'S SUBCUTANEOUSLY ONCE PER WEEK 3 mL 3 10/15/19 24 Active traZODone (Desyrel) 50 MG tabletIndicat ions:Other insomnia TAKE 2 TO 3 TABLETS 30 MINUTES BEFORE BEDTIME 90 tablet 3 11/28/19 24 Active amitriptyline (Elavil) 25 MG tablet TAKE ONE TABLET BY MOUTH AT BEDTIME 30 tablet 12/06/19 24 Active cholecalcifer ol (Vitamin D-3) 25 MCG (1000 UT) tablet Take 1 tablet (25 mcg) by mouth Once per day. 60 tablet 2 12/06/19 24 Active buPROPion XL (Wellbutrin XL) 300 MG 24 hr tablet Take 1 tablet (300 mg) by mouth Once per day. Do not crush, chew, or split. 30 tablet 2 12/06/19 24 Active aspirin (Aspirin Adult Low Strength) 81 MG EC tablet Take 1 tablet (81 mg) by mouth Once per day. 30 tablet 2 12/06/19 24 Active metFORMIN XR (Glucophage-X R) 500 MG 24 hr tablet TAKE TWO TABLETS EVERY EVENING WITH DINNER 60 tablet 3 01/16/20 24 Active FT Antifungal 2 % creamIndicati ons:Balanitis APPLY TO THE AFFECTED AREA(S) TWICE DAILY 30 g 1 04/14/19 25 Active gabapentin (Neurontin) 600 MG tabletIndicat ions:Acute back pain with sciatica, left TAKE ONE TABLET BY MOUTH THREE TIMES DAILY 90 tablet 3 05/13/19 25 Active gabapentin (Neurontin) 600 MG tabletIndicat ions:Acute back pain with sciatica, left TAKE ONE TABLET BY MOUTH THREE TIMES DAILY 90 tablet 3 04/18/19 24 2024 Discontinued Active Problems Problem Noted Date Diagnosed Date Right inguinal pain 11/27/2022 Assessment & Plan (11/27/2022 2:16 PM EDT): Patient with Hx of inguinal hernia with R side inguinal pain. Will send for ultrasound and refer to surgeon for further evaluation. 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 Depressive disorder 09/13/2011 Psoriasis 09/13/2011 Diabetes mellitus 08/23/2011 Hyperlipidemia 08/23/2011 Hypertension 08/23/2011 Lateral epicondylitis 08/23/2011 Encounters Date Type Department Care Team Description 05/22/2024 Travel 05/11/2024 Refill [facility] [address] [place], [place] [phone] Jeny Christiansen MD Acute back pain with sciatica, left 05/06/2024 10:30 AM EST Office Visit [facility] [address] [place] [address] Jeny Christianesn MD Type 2 diabetes mellitus with diabetic neuropathy, with long-term current use of insulin ([facility]) (Primary Dx); Other hyperlipidemia; Primary hypertension; Dry skin; Sensation of fullness in both ears; Encounter for immunization 05/06/2024 Travel 04/14/2024 Refill [facility] [address] [place] [address] Jeny Christiansen MD Balanitis 03/19/2024 Telephone [facility] [address] [place] [address] Jeny Christiansen MD 03/19/2024 Travel from Last 3 Months Immunizations Name Administration Dates Next Due Influenza Injectable Quadriv alant Preservative Free IIV4 MDCK 04/23/2019 Influenza injectable quadriv alent IIV4 with preservative 03/21/2022,04/04/2017,01/18/2016 Influenza injectable quadriv alent preservative free 04/18/2023,05/16/2021 Influenza, IIV3, injectable 01/17/2010 Influenza, Split (incl. taiwo fied surface antigen) 02/11/2013 Influenza, seasonal, injecta ble, preservative free 12/19/2023 Pfizer Covid-19 Vaccine 12+ 01/09/2024, Pfizer Covid-19 Vaccine 12+ Bivalent 03/21/2022 Pneumococcal Conjugate PCV 20 05/06/2024 Pneumococcal Polysaccharide PPSV23 02/15/2009 Tdap 11/05/2020,02/15/2009 Zoster, Recombinant 10/07/2019,04/23/2019 Social History Tobacco Use Types Packs/Day Years Used Date Smoking Tobacco: Every Day Cigarettes 1 39 Passive Smoke Exposure: Current Smokeless Tobacco: Never Tobacco Cessation:Ready to Q uit: Not Asked; Counseling Given: Not Answered Depression Answer Date Recorded Patient Health Questionnaire-9 [...] Orientation Straight 02/05/2022 10 :20 AM EDT Last Filed Vital Signs Vital Sign Reading Time Taken Comments Blood Pressure 122/68 05/22/2024 10:54 AM EST Pulse 79 05/22/2024 10:54 AM EST Temperature 36.7 ??C (98 ??F) 05/06/2024 10:17 AM EST Respiratory Rate 20 05/06/2024 10:17 AM EST Oxygen Saturation 96% 05/06/2024 10:17 AM EST Inhaled Oxygen Concentration - - Weight 71.2 kg (157 lb) 05/06/2024 10:17 AM EST Height 167.6 cm (5' 6 ) 05/06/2024 10:17 AM EST Body Mass Index 25.34 05/06/2024 10:17 AM EST Plan of Treatment Upcoming Encounters Date Type Department Care Team ([facility] st Contact Info) Description 06/17/2024 9:30 AM EDT Medication Management [facility] [address] [place] [address] Dinora Rocha, PharmD [address] [place] [address] 07/14/2024 9:00 AM EDT Office Visit [facility] [address] [place] [address] Jeny Christiansen MD [address] [place] [address] Health Maintenance Due Date Last Done Comments CT Colonography 1960 Colonoscopy 1960 FIT 1960 FOBT 1960 HIV Screening 1960 Sigmoidoscopy 1960 Eye Exam 1971 Hepatitis C Screening 1979 Lung Cancer Screening 03/26/2024 03/26/2023 Diabetes: Urine Protein Screening 07/30/2024 07/31/2023, 09/13/2021 Lipid Panel 07/30/2024 07/31/2023, 05/0 11/2022, 09/13/2021 Diabetes: Hemoglobin A1C 08/04/2024 025, 07/31/2023, 04/18/2023, Additional history exists Depression Monitoring (PHQ-9) 11/03/2024 05/06/2024, 05/06/2024 Alcohol/Substance Use Screening 05/06/2025 05/06/2024 Depression Screening 05/06/2025 05/06/2024, 05/06/19 Diabetes: Foot Exam 05/06/2025 05/06/2024, 10/24/2022, 10/24/2022, Additional history exists SDOH Screening 05/06/2025 05/06/2024 Tobacco Screening 05/06/2025 05/06/2024 Colorectal Cancer Screening 01/09/2026 FIT DNA/Cologuard 01/09/2026 01/09/2023 DTaP/Tdap/Td Vaccines (3 - Td or Tdap) 11/05/2030 11/05/2020, 02/15/2009 RSV Patients and Patients Aged 60 years or older (1 - 1-dose 75+ series) 2036 Zoster Vaccines Completed 10/07/2019, 04/23/2019 Influenza Vaccine Completed 12/19/2023, , 03/21/2022, Additional history exists COVID-19 Vaccine Completed 01/09/2024, 02/2024, 03/21/2022, Additional history exists Pneumococcal Vaccine: 50+ Years Completed 05/06/2024, 02/15/2009 HIB Vaccines Aged Out No longer eligi ble based on patient's age to complete this topic HPV Vaccines Aged Out No longer eligi ble based on patient's age to complete this topic Hepatitis A Vaccines Aged Out No long er eligible based on patient's age to complete this topic Hepatitis B Vaccines Aged Out No long er eligible based on patient's age to complete this topic IPV Vaccines Aged Out No longer eligi ble based on patient's age to complete this topic Meningococcal Vaccine Aged Out No nadeen terri eligible based on patient's age to complete this topic RSV under 20 months Aged Out No longe r eligible based on patient's age to complete this topic Rotavirus Vaccines Aged Out No longer eligible based on patient's age to complete this topic Goals Goal Patient Goal Type Associated Problems Recent Progress Patient-Stated? Author Hemoglobin A1c < 7 Result Component 10.9( 11:28 AM EST) No Ernst Stratton, AlexD Procedures Procedure Name Priority Date/Time Associated Diagnosis Comments POCT GLYCATED HEMOGLOBIN, TOTAL Routine 05/06/2024 11:28 AM EST Type 2 diabetes mellitus with diabetic neuropathy, with long-term current use of insulin ([facility]) POCT GLUCOSE Routine 05/06/2024 11:27 AM EST Type 2 diabetes mellitus with diabetic neuropathy, with long-term current use of insulin ([facility]) ALBUMIN, RANDOM URINE W/CREATININE Routine 07/31/2023 9:30 AM EDT Type 2 diabetes mellitus with diabetic neuropathy, with long-term current use of insulin ([facility]) Primary hypertension LIPID PANEL, STANDARD Routine 07/31/2023 9:25 AM EDT Type 2 diabetes mellitus with diabetic neuropathy, with long-term current use of insulin ([facility]) Primary hypertension LDCT LUNG SCREENING Routine 03/26/2023 4:39 PM EST LAB COLOGUARD?? COLON CANCER SCREEN Routine 01/09/2023 8:52 AM EDT Screening for colon cancer from Last 3 Months or Most Recently Relevant to Health Maintenance Results * (ABNORMAL) POCT HGB A1C (05/06/2024 11:28 AM EST) Hemoglobin A1C 10.9(A) 4.0 - 6.0 % QC Media Lot # [id number] Lot# Expiration Date [id number] Blood 05/06/2024 11:2 8 AM EST Jeny Christiansen MD POINT OF CARE TEST ENTER/ED IT ORDERABLES Final Result * (ABNORMAL) POCT Glucose (05/06/2024 11:27 AM EST) Pathologist [facility] Glucose Blood, POC 332(A) 60 - 200 mg/dL QC Media Lot # [id number] Comment:random Lot# Expiration Date [id number] Blood Capillary blood specimen / Unknown 05/06/2024 11:27 AM EST Jeny Christiansen MD POINT OF CARE TEST ENTER/ED IT ORDERABLES Final Result * Albumin, Random Urine W/Creatinine (07/31/2023 9:30 AM EDT) Creatinine, Urine 49.93 mg/dL [facility] Microalbumin Urine <5.0 mg/L [facility] Microalbum Creatinine Ratio Ur TNP <30 ug/mg cr [facility] Comment:Unable to calculate albumin/creatinine ratio due to lowmicroalbumin or creatinine result. Urine (Urine, Random) 07/31/2023 9:30 AM EDT 07/31/2023 2:46 PM EDT us Jeny Christiansen MD LAB URINE ORDERABLES Final Result Performing Organization Address [facility] Co de Phone Number [facility] [address] [place] [phone] * Lipid Panel, Standard (07/31/2023 9:25 AM EDT) Triglycerides 50 <150 mg/dL [facility] Comment:Desirable Triglyceri de: less than 150 mg/dLBorderline High Triglyceride 150-199 mg/dLHigh Triglyceride: 200-499 mg/dLVery High Triglyceride: greater than or equal to 5OO mg/dL Cholesterol 155 <200 mg/dL [facility] Comment:Desirable Cholestero l: less than 200 mg/dLBorderline High Cholesterol: 200-239 mg/dLHigh Cholesterol: greater than 239 mg/dL LDL Cholesterol Calculated 86 <100 mg/dL [facility] Comment:Desirable LDL: less than 100 mg/dLNear Optimal/Above Optimal LDL: 110- 129 mg/dLBorderline High LDL: 130-159 mg/dLHigh LDL: 160-189 mg/dLVery High LDL: greater than or equal to 190 mg/dL HDL Cholesterol 59 >40 mg/dL [facility] Comment:Desirable HDL: great er than 40 mg/dL Note: This HDL assay may give artificially low results in patients with liver disease. Blood Venous blood specimen / Unknown 07/31/2023 9:25 AM EDT 07/31/2023 2:49 PM EDT us Jeny Christiansen MD LAB BLOOD ORDERABLES Final Result Performing Organization Address [facility]/ZIP Co de Phone Number [facility] [address] [place] [address] [phone] * CT Lung Screening Low dose (03/26/2023 4:39 PM EST) Anatomical Region Laterality Modality Lung Computed Tomogra phy 03/26/2023 4:39 PM EST Narrative 04/10/2023 3:55 PM EST ? [facility] ?[address] ?[place], [place] [address] ? CT Scan Report ? Signed with Addenda ? Patient: Minor,Indra R ?MR#: [id number] ?? [id number] ? : 1960 ?Acct:[id number] ? Age/Sex: 63 / M ?ADM Date: 03/26/23 ? Loc: HO.CT ? Attending Dr: Karla Love PA-C ? Ordering Physician: Karla Love PA-C ?? Date of Service: 03/26/23 ?? Procedure(s): CT lung screening ?? Accession Number(s): [id number] ? cc: Jeny Christiansen MD; Karla Love PA-C ?ADDENDUM ?? Addendum: ? Results Acknowledgement: ?? HUMBLE Washington (04/15/2023 03:43:19): I spoke to MARIA T Pinto at ?? 3:15 on 04/15/2023. ? Addendum Dictated By: ?Vivian Ackerman MD ? Addendum Signed By: ? <Electronically signed by Vivian Ackerman MD in OV> ?04/23/23728 ?? Addendum Cosigned By: ? DD/ ? TD/TT: / ? EXAMINATION: ?? CT CHEST SCREENING ? CLINICAL INFORMATION: ?? Nicotine dependence ? COMPARISON: ?? Previous CTs, most recent, 05/30/2021 ? TECHNIQUE: ?? Multidetector volumetric CT imaging of the chest is performed without ?? contrast using low dose technique. Additional 2D coronal and sagittal ?? reformatted images and axial 3D maximum intensity projection (MIP) ?? images are generated on the CT workstation. ? This CT examination was performed using dose optimization techniques as ?? appropriate, variously including the following: ?? *Automated exposure control ?? *Adjustment of mA and/or kV according to patient size (this includes ?? techniques or standardized protocols for targeted exams where dose is ?? matched to indication/reason for exam; i.e. extremities or head) ?? *Use of iterative reconstruction technique ? DLP: ? 47 mGy-cm ? FINDINGS: ? HONEYCOMB DECAPPER: Unremarkable. ? LUNGS: Trachea and bronchi are patent. Scattered atelectasis. ?? Increased reticular markings at the right costophrenic angle, having ?? shown progression from 2020. ?? Since the most recent 2021 study, in addition to increasing reticular ?? markings in the right lower lobe, there has been ?? interval development subpleural nodular density with possible internal ?? cavitation measuring 8 mm coronal , sagittal . Regional ?? increasing subpleural cystic changes are also seen, see coronal 7:67 ?? through 69, axial 6:353-357. ? MEDIASTINUM: Unremarkable thyroid. Nonenlarged heart. No pericardial ?? effusion. Nonenlarged pulmonary arteries with atherosclerotic ?? calcifications. Nonenlarged pulmonary arteries. ? CORONARY ARTERY CALCIFICATION: Severe ? PLEURA: There is no pleural effusion. No pleural mass or thickening. ? AXILLA: No lymphadenopathy. ? UPPER ABDOMEN: Unremarkable ? OSSEOUS STRUCTURES: No suspicious osseous lesions. ? CT/CT lung screening ?? IMPRESSION: ?? Increasing right lower lobe/costophrenic angle reticular markings, ?? cystic changes and 8 mm solid subpleural nodular density with possible ?? cavitation. ? ASSESSMENT: ? Lung-RADS category 4B: ??Suspicious ? RECOMMENDATION: ?? PET/CT and/or tissue sampling. ?? One month LDCT may be recommended to address potential infectious or ?? inflammatory conditions. ? At the time of this dictation, PSA service contacted to alert referring ?? physician as to findings and recommendations. ? Dictated By: ?Vivian Ackerman MD ? Signed By: ?<Electronically signed by Vivian Ackerman MD in OV> ?04/10/23 1551 ? DD/ 1639 ? TD/TT: ? Pattern Storage Clerk: ? Procedure Note Thomas, Image - 04/23/[address] [address] [address] Scan Report Signed with Jeffy Patient: Indra Minor RMR#: [id number] : 1Acct:[id number] Age/Sex: 63 / MADM Date: 03/26/23 Loc: HO.CT Attending Dr: Karla Love PA-C Ordering Physician: Karla Love PA-C Date of Service: 03/26/23 Procedure(s): CT lung screening Accession Number(s): [id number] cc: Jeny Christiansen MD; Karla Love PA-C ADDENDUM Addendum: Results Acknowledgement: HUMBLE Washington (04/15/2023 03:43:19): I spoke to MARIA T Pinto, at 3:15 on 04/15/2023. Addendum Dictated By: Vivian Ackerman MD Addendum Signed By: <Electronically signed by MD Javi in OV> 04/23/23728 Addendum Cosigned By: DD/ TD/TT: / EXAMINATION: CT CHEST SCREENING CLINICAL INFORMATION: Nicotine dependence COMPARISON: Previous CTs, most recent, 05/30/2021 TECHNIQUE: Multidetector volumetric CT imaging of the chest is performed without contrast using low dose technique. Additional 2D coronal and sagittal reformatted images and axial 3D maximum intensity projection (MIP) images are generated on the CT workstation. This CT examination was performed using dose optimization techniques as appropriate, variously including the following: *Automated exposure control *Adjustment of mA and/or kV according to patient size (this includes techniques or standardized protocols for targeted exams where dose is matched to indication/reason for exam; i.e. extremities or head) *Use of iterative reconstruction technique DLP: 47 mGy-cm FINDINGS: HONEYCOMB DECAPPER: Unremarkable. LUNGS: Trachea and bronchi are patent. Scattered atelectasis. Increased reticular markings at the right costophrenic angle, having shown progression from 2020. Since the most recent 2021 study, in addition to increasing reticular markings in the right lower lobe, there has been interval development subpleural nodular density with possible internal cavitation measuring 8 mm coronal , sagittal /. Regional increasing subpleural cystic changes are also seen, see coronal 7:67 through 69, axial 6:353-357. MEDIASTINUM: Unremarkable thyroid. Nonenlarged heart. No pericardial effusion. Nonenlarged pulmonary arteries with atherosclerotic calcifications. Nonenlarged pulmonary arteries. CORONARY ARTERY CALCIFICATION: Severe PLEURA: There is no pleural effusion. No pleural mass or thickening. AXILLA: No lymphadenopathy. UPPER ABDOMEN: Unremarkable OSSEOUS STRUCTURES: No suspicious osseous lesions. CT/CT lung screening IMPRESSION: Increasing right lower lobe/costophrenic angle reticular markings, cystic changes and 8 mm solid subpleural nodular density with possible cavitation. ASSESSMENT: Lung-RADS category 4B: Suspicious RECOMMENDATION: PET/CT and/or tissue sampling. One month LDCT may be recommended to address potential infectious or inflammatory conditions. At the time of this dictation, PSA service contacted to alert referring physician as to findings and recommendations. Dictated By: Vivian Ackerman MD Signed By: <Electronically signed by Vivian Ackerman MD in OV> 04/10/23 1551 DD/ 1639 TD/TT: Pattern Storage Clerk: [facility] External Provider IMG CT PROCEDURES Edited Result - Final * Cologuard?? colon cancer screening (01/09/2023 8:52 AM EDT) Cologuard Result Negative Negative 01/18/20 2:29 AM EDT [facility] (CLIA #:[id number]) Comment: NEGATIVE TEST RESULT. A negative Cologuard [...] screened with both Cologuard and colonoscopy. (Norma Brunner al, N Engl J Med 2014;370(14):1286- 1297) The normal value (reference range) for this assay is negative. COLOGUARD RE-SCREENING RECOMMENDATION: Periodic colorectal cancer screening is an important part of preventive healthcare for asymptomatic individuals at average risk for colorectal cancer. ??Following a negative Cologuard result, the [place] [employer] and U.S. Multi-Society Task Force screening guidelines recommend a Cologuard re-screening interval of 3 years. References: [place] [employer] Guideline for Colorectal Cancer Screening: https://www.cancer.org/cancer/hpncj-awujhz-rlyakw/bhepmtlvc-uptlrklfj-vzsskrd/ac s-rec ommendations.html.; Michael DK, Sanjiv NUNEZ, Vickie FERRELL, Colorectal Cancer Screening: Recommendations for Physicians and Patients from the U.S. Multi-Society Task Force on Colorectal Cancer Screening , Am J Gastroenterology 2017; 112:3821-6647. TEST DESCRIPTION: Composite algorithmic analysis of stool [...] screened with both Cologuard and colonoscopy. (Norma Brunner al, N Engl J Med 2014;370(14):9399-8289.) Cologuard may produce a false negative or false positive result (no colorectal cancer or precancerous polyp present at colonoscopy follow up). A negative Cologuard test result does not guarantee the absence of CRC or advanced adenoma (pre-cancer). The current Cologuard screening interval is every 3 years. ([place] [employer] and U.S. Multi-Society Task Force). Cologuard performance data in a 10,000 patient pivotal study using colonoscopy as the reference method can be accessed at the following location: www.Playcez/results. Additional description of the Cologuard test process, warnings and precautions can be found at www.cologuard.com. Stool specimen (specimen) 01/09/2023 8:52 AM EDT 01/10/2023 5:38 PM EDT Jeny Christiansen MD LAB MOLECULAR DIAGNOSTICS O TMOAS Final Result [facility] (CLIA #:[id number]) [address] [place] [address], from Last 3 Months or Most Recently Relevant to Health Maintenance Insurance [employer] MEDICARE * Guarantor: Indra Minor Account Type Relation to Patient Date of Phone Billing Address Personal/Family Self INGRID Rees13 * Guarantor: Indra Minor Account Type Relation to Patient Date of Phone Billing Address Personal/Family Self INGRID Rees13 * Guarantor: Indra Minor Account Type Relation to Patient Date of Phone Billing Address Personal/[place] [address] Care Teams Medication Reconciliation Technician Relationship Specialty Start Date End Date Jeny Christiansen MD [address] [place], [place] [phone] PCP - General Internal Medicine 12/16/15 Ernst Stratton, PharmD [address] [place] [address] Pharmacist Internal Medicine 05/10/22
--- OUTSIDE RECORDS SUMMARY | 2024-05-22 11:14 | XMS_ITS | Encounter Summary ---
Author Organization [employer] Address [address] [facility] 7t [place] [address] Care Team Providers Care Toe Stapler Name Role Phone Jeny Christiansen MD Primary Care Provider [phone] Ernst Stratton PharmD Unavailable Unavail able Reason for Visit * Reason Comments Med Refill Encounter Details Date Type Department Care Team ([facility] st Contact Info) Description 12/06/2023 Refill [facility] MED & PEDS [address] [place], [place] [phone] Jeny Christiansen MD [address] [place] [address] Type 2 diabetes mellitus with diabetic neuropathy, with long-term current use of insulin ([facility]) Social History Tobacco Use Types Packs/Day Years Used Date Smoking Tobacco: Every Day Cigarettes 1 39 Passive Smoke Exposure: Current Smokeless Tobacco: Never Depression Answer Date Recorded Patient Health Questionnaire-9 Score 0 04/12/2022 Housing Stability Answer Date Recorded What is your housing situation today? I have gale goff 01/21/[address] you li ve. Do you have problems with any of the following? None of the above 01/21/2023 Food Insecurity Answer Date Recorded Within the past 12 months, y ou worried that your food would run out before you got money to buy more: Never True 01/21/2023 Within the past 12 months,th e food you bought just didn't last and you didn't have enough money to get more: Never True Transportation Answer Date Recorded In the past 12 months, has l ack of transportation kept you from medical appts, meetings, work or from getting things needed for daily living? No 01/21/2023 Utilities Answer Date Recorded In the past 12 months, has t he electric, gas, oil or water company threatened to shut off services in your home? No 01/21/2023 Depression Answer Date Recorded Patient Health Questionnaire-2 [...] Description 06/17/2024 9:30 AM EDT Medication Management [facility] MED & PEDS [address] [place] [address] Dinora Rocha PharmD [address] [place], [place] [phone] 07/14/2024 9:00 AM EDT Office Visit [facility] MED & PEDS [address] [place] [address] Jeny Christiansen MD [address] [place] [address] documented as of this encounter Goals Goal Patient Goal Type Associated Problems Recent Progress Patient-Stated? Author Hemoglobin A1c < 7 Result Component 10.9( 11:28 AM EST) No Ernst Stratton, PharmEduarda documented as of this encounter Visit Diagnoses Diagnosis Type 2 diabetes mellitus with diabetic neuropathy, with long-term current use of insulin ([facility]) documented in this encounter Additional Health Concerns Assessment Noted Time PHQ-9 Depression Total Score: 0 04/12/19 23 10:53 AM EST documented as of this encounter Care Teams Toe Stapler Relationship Specialty Start Date End Date Jeny Christiansen MD [address] [place] [address] PCP - General Internal Medicine 12/16/15 Ernst Stratton PharmD [address] [place] [address] Pharmacist Internal Medicine 05/10/22 documented as of this encounter
--- OUTSIDE RECORDS SUMMARY | 2024-05-22 11:14 | XMS_ITS | Encounter Summary ---
Author Organization [email or web address] [facility] Address [address] [facility] 7t [place] [address] Care Team Providers Care Pocket Setter Lockstitch Name Role Phone Jeny Christiansen MD Primary Care Provider [phone] Ernst Stratton PharmD Unavailable Unavail able Reason for Visit * Reason Comments Med Refill Encounter Details Date Type Department Care Team (Late st Contact Info) Description 04/19/2022 Refill [facility] CHC MED & PEDS [address] [place] [address] Jeny Christiansen MD [address] [place] [address] Primary insomnia (Primary Dx) Social History Tobacco Use Types Packs/Day Years [...] Orientation Straight 02/05/2022 10 :20 AM EDT COVID-19 Exposure Response Date Recorded In the last 10 days, have yo u been in contact with someone who was confirmed or suspected to have Coronavirus/COVID-19? No / Unsure 04/12/2022 10:19 AM EST documented as of this encounter Plan of Treatment Upcoming Encounters Date Type Department Care Team (Late st Contact Info) Description 06/17/2024 9:30 AM EDT Medication Management [facility] MED & PEDS [address] [place] [address] Dinora Rocha PharmD [address] [place], [place] [phone] 07/14/2024 9:00 AM EDT Office Visit [facility] MED & PEDS [address] [place] [address] Jeny Christiansen MD [address] [place] [address] documented as of this encounter Visit Diagnoses Diagnosis Primary insomnia- Primary Persistent disorder of initiating or maintaining sleep documented in this encounter Additional Health Concerns Assessment Noted Time PHQ-9 Depression Total Score: 0 04/12/19 10:53 AM EST documented as of this encounter Care Teams Pocket Setter Lockstitch Relationship Specialty Start Date End Date Jeny Christiansen MD [address] [place] [address] PCP - General Internal Medicine 12/16/15 Ernst Stratton PharmD [address] [place] [address] Pharmacist Internal Medicine 05/10/22 documented as of this encounter
--- OUTSIDE RECORDS SUMMARY | 2024-05-22 11:14 | XMS_ITS | Encounter Summary ---
Author Organization [facility] [facility] Address [address] [facility] 7t [place] [address] Care Team Providers Care Software Configuration Analyst Name Role Phone Jeny Christiansen MD Primary Care Provider [phone] Ernst Stratton PharmD Unavailable Unavail able Encounter Details Date Type Department Care Team (Late st Contact Info) Description 03/21/2022 Orders Only [facility] [address] [place], [place] [phone] Nazia Phillips LPN Social History Tobacco Use Types Packs/Day Years Used Date Smoking Tobacco: Never Assessed Sex and Gender Information Value Date Recorded [...] suspected to have Coronavirus/COVID-19? No / Unsure 03/21/2022 11:31 AM EST documented as of this encounter Plan of Treatment Upcoming Encounters Date Type Department Care Team (Late st Contact Info) Description 06/17/2024 9:30 AM EDT Medication Management [facility] MED & PEDS [address] [place], [place] [phone] Dinora Rocha, PharmD [address] [place] [address] 07/14/2024 9:00 AM EDT Office Visit [facility] MED & PEDS [address] [place] [address] Jeny Christiansen MD 505 [place] [address] documented as of this encounter Visit Diagnoses Not on filedocumented in this encounter Care Teams Software Configuration Analyst Relationship Specialty Start Date End Date Jeny Christiansen MD 505 [place] [address] PCP - General Internal Medicine 12/16/15 Ernst Stratton, AlexD 505 [place] [address] Pharmacist Internal Medicine 05/10/22 documented as of this encounter
--- OUTSIDE RECORDS SUMMARY | 2024-05-22 11:14 | XMS_ITS | Encounter Summary ---
Author Organization [employer] Address [address] [place] [address] 7 [place] [address] Care Team Providers Care Electric Repair Supervisor Name Role Phone Jeny Christiansen MD Primary Care Provider [phone] Ernst Stratton PharmD Unavailable Unavail able Reason for Referral * Consultation (Routine) - Closed Specialty Diagnoses / Procedures Referred By Titus bautista Referred To Contact Otolaryngology Diagnoses Sensation of fullness in both ears Jney Christiansen MD [address] [place] [address] Phone: tel: fax: [facility] [address] Phone: tel: fax: Referral ID Status Reason Start Date Expiration Date V isits Requested Visits Authorized [id number] Closed Specialty Services Required 05/06/2024 05/06/2025 1 1 * Consultation (Routine) - Authorized Specialty Diagnoses / Procedures Referred By Titus bautista Referred To Contact Pharmacy Diagnoses Type 2 diabetes mellitus with diabetic neuropathy, with long-term current use of insulin ([facility]) Jeny Christiansen MD [address] [place] [address] Phone: tel: fax: Referral ID Status Reason Start Date Expiration Date Visits Requested Visits Authorized [id number] Authorized Consult and Treat 05/06/2024 05/06/2025 6 6 Reason for Visit * Reason Comments Diabetes Encounter Details Date Type Department Care Team ([facility] st Contact Info) Description 05/06/2024 10:30 AM EST Office Visit [facility] CHC MED & PEDS [address] [place] [address] Jeny Christiansen MD [address] [place] [address] Type 2 diabetes mellitus with diabetic neuropathy, with long-term current use of insulin ([facility]) (Primary Dx); Other hyperlipidemia; Primary hypertension; Dry skin; Sensation of fullness in both ears; Encounter for immunization Social History Tobacco Use Types Packs/Day Years [...] AM EDT documented as of this encounter Last Filed Vital Signs Vital Sign Reading Time Taken Comments Blood Pressure 134/84 05/06/2024 10:17 AM EST Pulse 88 05/06/2024 10:17 AM EST Temperature 36.7 ??C (98 ??F) 05/06/2024 10:17 AM EST Respiratory Rate 20 05/06/2024 10:17 AM EST Oxygen Saturation 96% 05/06/2024 10:17 AM EST Inhaled Oxygen Concentration - - Weight 71.2 kg (157 lb) 05/06/2024 10:17 AM EST Height 167.6 cm (5' 6 ) 05/06/2024 10:17 AM EST Body Mass Index 25.34 05/06/2024 10:17 AM EST documented in this encounter Progress Notes * Jeny Christiansen MD - 05/06/2024 10:30 AM EST Subjective Patient ID: Indra Minor is a 64 y.o. male who presents for Diabetes. Diabetes He presents for his follow-up diabetic visit. He has type 2 diabetes mellitus. His disease course has been fluctuating. Pertinent negatives for hypoglycemia include no confusion, dizziness, headaches, mood changes, nervousness/anxiousness, sleepiness, speech difficulty or sweats. Pertinent negatives for diabetes include no blurred vision, no chest pain, no fatigue, no foot paresthesias, no foot ulcerations, no polydipsia, no polyphagia, no polyuria, no visual change, no weakness and no weight loss. Hypertension This is a chronic problem. Pertinent negatives include no anxiety, blurred vision, chest pain, headaches, malaise/fatigue, neck pain, orthopnea, palpitations, peripheral edema, PND, shortness of breath or sweats. Here for follow-up on his hypertension and diabetes. Patient admits to being inconsistent with his diet and his medication. Denies polyuria/polydipsia. Was evaluated in the office in November 2019 for with clogged ears. Prescribed Debrox which she used for 5 days. No significant improvement. Treated for acute otitis externa with Cortisporin drops for 1 week. No significant improvement either with that treatment. Patient reports that is still feeling bilateral ear fullness. Denies any drainage. Also admits to decreased hearing bilaterally. H/o smoking 1 ppd x the last 50 years. Patient Active Problem List Diagnosis Decreased hearing Depressive disorder Diabetes mellitus (CMS/HCC) Fatigue Hyperlipidemia Hypertension Lateral epicondylitis Psoriasis Retinal lattice degeneration Right inguinal pain Current Outpatient Medications on File Prior to Visit Medication Sig Dispense Refill amitriptyline (Elavil) 25 MG tablet TAKE ONE TABLET BY MOUTH AT BEDTIME 30 tablet 0 aspirin (Aspirin Adult Low Strength) 81 MG EC tablet Take 1 tablet (81 mg) by mouth Once per day. 30 tablet 2 buPROPion XL (Wellbutrin XL) 300 MG 24 hr tablet Take 1 tablet (300 mg) by mouth Once per day. Do not crush, chew, or split. 30 tablet 2 cholecalciferol (Vitamin D-3) 25 MCG (1000 UT) tablet Take 1 tablet (25 mcg) by mouth Once per day.60 tablet 2 cholecalciferol (Vitamin D-3) 25 MCG tablet Take 25 mcg by mouth in the morning. diclofenac (Voltaren) 50 MG EC tablet TAKE ONE TABLET BY MOUTH TWICE DAILY 60 tablet 0 Diclofenac Sodium 1 % gel APPLY TWO GRAM TO THE AFFECTED AREA(s) THREE TO FOUR TIMES DAILY 100 g 1 FT Antifungal 2 % cream APPLY TO THE AFFECTED AREA(S) TWICE DAILY 30 g 1 gabapentin (Neurontin) 600 MG tablet TAKE ONE TABLET BY MOUTH THREE TIMES DAILY 90 tablet 3 glimepiride (Amaryl) 2 MG tablet TAKE ONE TABLET BY MOUTH THREE TIMES DAILY BEFORE MEALS Lancets 33G misc Use test blood sugar three times daily 100 each 11 metFORMIN XR (Glucophage-XR) 500 MG 24 hr tablet TAKE TWO TABLETS EVERY EVENING WITH DINNER 60 tablet 3 Ozempic, 2 MG/DOSE, 8 MG/3ML solution pen-injector INJECT TWO MG'S SUBCUTANEOUSLY ONCE PER WEEK 3 mL 3 rosuvastatin (Crestor) 10 MG tablet TAKE ONE TABLET DAILY 30 tablet 2 traZODone (Desyrel) 50 MG tablet TAKE 2 TO 3 TABLETS 30 MINUTES BEFORE BEDTIME 90 tablet 3 No current facility-administered medications on file prior to visit. Allergies Allergen Reactions Penicillin G Penicillins Unknown Review of Systems Constitutional: Negative for fatigue, malaise/fatigue and weight loss. Eyes: Negative for blurred vision. Respiratory: Negative for shortness of breath. Cardiovascular: Negative for chest pain, palpitations, orthopnea and PND. Endocrine: Negative for polydipsia, polyphagia and polyuria. Musculoskeletal: Negative for neck pain. Neurological: Negative for dizziness, speech difficulty, weakness and headaches. Psychiatric/Behavioral: Negative for confusion. The patient is not nervous/anxious. Objective BP 134/84 (BP Location: Left arm, Patient Position: Sitting, BP Cuff Size: Adult) Pulse 88 Temp98 ??F (36.7 ??C) (Oral) Resp 20 Ht 5' 6 (1.676 m) Wt 157 lb (71.2 kg) SpO2 96% BMI 25.34 kg/m?? Physical Exam Constitutional: General: He is not in acute distress. Appearance: Normal appearance. He is not ill-appearing, toxic-appearing or diaphoretic. HENT: Right Ear: Decreased hearing noted. No laceration, drainage, swelling or tenderness. Left Ear: Decreased hearing noted. No laceration, drainage, swelling or tenderness. Musculoskeletal: Cervical back: Normal range of motion. Neurological: Mental Status: He is alert. Assessment/Plan Diagnoses and all orders for this visit: Type 2 diabetes mellitus with diabetic neuropathy, with long-term current use of insulin ([facility]) Comments: Uncontrolled due to poor compliance to medication Compliance to medication reinforced Low-carb diet Orders: - POCT Glucose - POCT HGB A1C - Referral to Pharmacy CDTM - CBC auto differential; Future - Comprehensive Metabolic Panel; Future - Lipid Panel, Standard; Future - TSH W/Reflex to FT4; Future Other hyperlipidemia Comments: Lipid panel prior to the next visit. Further management depending on the results Orders: - CBC auto differential; Future - Comprehensive Metabolic Panel; Future - Lipid Panel, Standard; Future - TSH W/Reflex to FT4; Future Primary hypertension Comments: BP is at goal No change. Dry skin Comments: CeraVe skin moisturizer recommended after shower. Sensation of fullness in both ears - Referral to ENT; Future documented in this encounter Plan of Treatment Upcoming Encounters Date Type Department Care Team (Late st Contact Info) Description 06/17/2024 9:30 AM EDT Medication Management [facility] MED & PEDS [address] [place], [place] [phone] Dinora Rocha, AlexD [address] [place] [address] 07/14/2024 9:00 AM EDT Office Visit [facility] CHC MED & PEDS [address] [place], [place] [phone] Jeny Christiansen MD [address] [place], [place] Scheduled Orders Name Type Priority Associated Diagnoses Orde r Schedule CBC auto differential Lab Routine Type 2 diabetes mellitus with diabetic neuropathy, with long-term current use of insulin ([facility]) Other hyperlipidemia Expected: 05/06/2024 (Approximate), Expires: 05/06/2025 Comprehensive Metabolic Panel Lab Routine Type 2 diabetes mellitus with diabetic neuropathy, with long-term current use of insulin ([facility]) Other hyperlipidemia Expected: 05/06/2024 (Approximate), Expires: 05/06/2025 Lipid Panel, Standard Lab Routine Type 2 diabetes mellitus with diabetic neuropathy, with long-term current use of insulin ([facility]) Other hyperlipidemia Expected: 05/06/2024 (Approximate), Expires: 05/06/2025 TSH W/Reflex to FT4 Lab Routine Type 2 diabetes mellitus with diabetic neuropathy, with long-term current use of insulin ([facility]) Other hyperlipidemia Expected: 05/06/2024 (Approximate), Expires: 05/06/2025 Scheduled Referrals Name Type Priority Associated Diagnoses Orde r Schedule Referral to Pharmacy CDTM Outpatient Referral Routine Type 2 diabetes mellitus with diabetic neuropathy, with long-term current use of insulin ([facility]) Ordered: 05/06/2024 Referral to ENT Outpatient Referral Routine Sensation of fullness in both ears Expected: 05/06/2024 (Approximate), Expires: 05/06/2025 documented as of this encounter Goals Goal [...] neuropathy, with long-term current use of insulin ([facility]) POCT GLUCOSE Routine 05/06/2024 11:27 AM EST Type 2 diabetes mellitus with diabetic neuropathy, with long-term current use of insulin ([facility]) documented in this encounter Results * (ABNORMAL) POCT HGB A1C (05/06/2024 11:28 AM EST) Hemoglobin A1C 10.9(A) 4.0 - 6.0 % QC Media Lot # [id number] Lot# Expiration Date [id number] Blood 05/06/2024 11:2 8 AM EST Jeny Christiansen MD POINT OF CARE TEST ENTER/ED IT ORDERABLES Final Result * (ABNORMAL) POCT Glucose (05/06/2024 11:27 AM EST) Glucose Blood, POC 332(A) 60 - 200 mg/dL QC Media Lot # [id number] Comment:random Lot# Expiration Date [id number] Blood Capillary blood specimen / Unknown 05/06/2024 11:27 AM EST Jeny Christiansen MD POINT OF CARE TEST ENTER/ED IT ORDERABLES Final Result documented in this encounter Visit Diagnoses Diagnosis Type 2 diabetes mellitus with diabetic neuropathy, with long-term current use of insulin ([facility])- Primary Other hyperlipidemia Primary hypertension Unspecified essential hypertension Dry skin Other symptoms involving skin and integumentary tissues Sensation of fullness in both ears Encounter for immunization documented in this encounter Additional Health Concerns Assessment Noted Time PHQ-9 Depression Total Score: 18 025 11:09 AM EST documented as of this encounter Care Teams Electric Repair Supervisor Relationship Specialty Start Date End Date Jeny Christiansen MD [address] [place] [address] PCP - General Internal Medicine 12/16/15 Ernst Stratton, AlexD [address] [place] [address] Pharmacist Internal Medicine 05/10/22 documented as of this encounter
--- OUTSIDE RECORDS SUMMARY | 2024-05-22 11:14 | XMS_ITS | Encounter Summary ---
Author Organization [employer] Address [address] [facility] 7t [place] [address] Care Team Providers Care Sensitized Paper Tester Name Role Phone Jeny Christiansen MD Primary Care Provider [phone] Ernst Stratton PharmD Unavailable Unavail able Encounter Details Date Type Department Care Team (Late Contact Info) Description 10/31/2022 Orders Only [facility] CHC MED & PEDS [address] [place], [place] [phone] Jeny Christiansen MD 505 [place] [address] Type 2 diabetes mellitus with diabetic neuropathy, with long-term current use of insulin ([facility]) (Primary Dx) Social History Tobacco Use Types [...] suspected to have Coronavirus/COVID-19? No / Unsure 10/02/2022 9:01 AM EDT documented as of this encounter Plan of Treatment Upcoming Encounters Date Type Department Care Team (Late st Contact Info) Description 06/17/2024 9:30 AM EDT Medication Management [facility] MED & PEDS [address] [place] [address] Dinora Rocha PharmD [address] [place] [address] 07/14/2024 9:00 AM EDT Office Visit [facility] MED & PEDS [address] [place] [address] Jeny Christiansen MD [address] [place] [address] documented as of this encounter Goals Goal Patient Goal Type Associated Problems Recent Progress Patient-Stated? Author Hemoglobin A1c < 7 Result Component 10.9( 11:28 AM EST) No Ernst Stratton PharmD documented as of this encounter Visit Diagnoses Diagnosis Type 2 diabetes mellitus with diabetic neuropathy, with long-term current use of insulin ([facility])- Primary documented in this encounter Additional Health Concerns Assessment Noted Time PHQ-9 Depression Total Score: 0 04/12/19 10:53 AM EST documented as of this encounter Care Teams Sensitized Paper Tester Relationship Specialty Start Date End Date Jeny Christiansen MD [address] [place] [address] PCP - General Internal Medicine 12/16/15 Ernst Stratton PharmD [address] [place] [address] Pharmacist Internal Medicine 05/10/22 documented as of this encounter
--- OUTSIDE RECORDS SUMMARY | 2024-05-22 11:14 | XMS_ITS | Encounter Summary ---
Author Organization [employer] Address [address] [facility] 7t [place] [address] Care Team Providers Care Farm Products Shipper Name Role Phone Jeny Christiansen MD Primary Care Provider [phone] Ernst Stratton PharmD Unavailable Unavail able Reason for Visit * Reason Comments Med Refill Encounter Details Date Type Department Care Team ([facility] st Contact Info) Description 01/23/2024 Refill [facility] MED & PEDS [address] [place] [address] Ryan Carrizales MD [address] [place] [address] Janeth Social History Tobacco Use Types Packs/Day Years [...] Description 06/17/2024 9:30 AM EDT Medication Management [facility] MED & PEDS [address] [place] [address] Dinora Rocha PharmD [address] [place] [address] 07/14/2024 9:00 AM EDT Office Visit [facility] MED & PEDS [address] [place] [address] Jeny Christiansen MD [address] [place] [address] documented as of this encounter Goals Goal Patient Goal Type Associated Problems Recent Progress Patient-Stated? Author Hemoglobin A1c < 7 Result Component 10.9( 11:28 AM EST) No Ernst Stratton, PharmD documented as of this encounter Visit Diagnoses Diagnosis Balanitis Balanoposthitis documented in this encounter Additional Health Concerns Assessment Noted Time PHQ-9 Depression Total Score: 0 04/12/19 10:53 AM EST documented as of this encounter Care Teams Farm Products Shipper Relationship Specialty Start Date End Date Jeny Christiansen MD [address] [place] [address] PCP - General Internal Medicine 12/16/15 Ernst Stratton, PharmD [address] [place] [address] Pharmacist Internal Medicine 05/10/22 documented as of this encounter
--- OUTSIDE RECORDS SUMMARY | 2024-05-22 11:14 | XMS_ITS | Encounter Summary ---
Author Organization [employer] Address [address] [facility] 7[address] [place] [address] Care Team Providers Care Computer Builder Name Role Phone Jeny Christiansne MD Primary Care Provider [phone]- [phone] Ernst Stratton PharmD Unavailable Unavail able Reason for Visit * Reason Comments Med Refill Encounter Details Date Type Department Care Team ([facility] st Contact Info) Description 05/11/2024 Refill [facility] PEDS [address] [place], [place] [phone] Jeny Christiansen MD [address] [place] [address] Acute back pain with sciatica, left Social History Tobacco Use Types Packs/Day Years [...] Upcoming Encounters Date Type Department Care Team ([facility] st Contact Info) Description 06/17/2024 9:30 AM EDT Medication Management [facility] MED & PEDS [address] [place] [address] Dinora Rocha, PharmD [address] [place] [address] 07/14/2024 9:00 AM EDT Office Visit [facility] MED & PEDS [address] [place] [address] Jeny Christiansen MD [address] [place] [address] documented as of this encounter Goals Goal Patient Goal Type Associated Problems Recent Progress Patient-Stated? Author Hemoglobin A1c < 7 Result Component 10.9( 11:28 AM EST) No Ernst Stratton, PharmD documented as of this encounter Visit Diagnoses Diagnosis Acute back pain with sciatica, left documented in this encounter Additional Health Concerns Assessment Noted Time PHQ-9 Depression Total Score: 18 025 11:09 AM EST documented as of this encounter Care Teams Computer Builder Relationship Specialty Start Date End Date Jeny Christiansen MD [address] [place] [address] PCP - General Internal Medicine 12/16/15 Ernst Stratton, AlexD [address] [place] [address] Pharmacist Internal Medicine 05/10/22 documented as of this encounter
--- OUTSIDE RECORDS SUMMARY | 2024-05-22 11:14 | XMS_ITS | Encounter Summary ---
Author Organization [employer] Address [address] [facility] 7[address] [place] [address] Care Team Providers Care Watchmaker Apprentice Name Role Phone Jeny Christiansen MD Primary Care Provider [phone] Ernst Stratton PharmD Unavailable Unavail able Encounter Details Date Type Department Care Team (Latest Contact Info) Description 05/06/2024 Travel Social History Tobacco Use Types Packs/Day [...] Description 06/17/2024 9:30 AM EDT Medication Management [facility] MED & PEDS [address] [place] [address] Dinora Rocha PharmD [address] [place] [address] 07/14/2024 9:00 AM EDT Office Visit [facility] MED & PEDS [address] [place] [address] Jeny Christiansen MD [address] [place] [address] documented as of this encounter Goals Goal [...] documented as of this encounter Care Teams Watchmaker Apprentice Relationship Specialty Start Date End Date Jeny Christiansen MD [address] [place] [address] PCP - General Internal Medicine 12/16/15 Ernst Stratton PharmD [address] [place] [address] Pharmacist Internal Medicine 05/10/22 documented as of this encounter
[2024-05-22 14:12] LABS: MANUAL DIFF FLAG NO
[2024-05-22 14:22] LABS: Basophils Absolute Auto 0.1 X10*3/uL (0.0-0.2); Basophils Percent Auto 0.8 % (0-2); Eosinophils Absolute Auto 0.2 X10*3/uL (0.0-0.4); Eosinophils Percent Auto 2.6 % (0-4); Hematocrit 43.5 % (42.0-52.0); Hemoglobin 14.6 g/dl (14.0-18.0); Imm Gran Abs Auto 0.02 X10*3/uL (0.00-0.03); Imm Gran Pct Auto 0.3 % (0.0-0.4); Lymphocytes Absolute Auto 2.3 X10*3/uL (1.2-4.9); Mean Corpuscular HGB Conc 33.6 g/dl (31.0-36.0); Mean Corpuscular Volume 92.4 fL (80.0-98.0); Monocytes Absolute Auto 0.6 X10*3/uL (0.1-1.2); Monocytes Percent Auto 9.6 % (2-11); Neutrophils Absolute Auto 3.4 x10*3/uL (2.0-8.3); Neutrophils Percent Auto 51.7 % (45-73); Platelet Count 309 X10*3/uL (160-400); Red Blood Count 4.71 X10*6/uL (4.60-5.80); White Blood Count 6.6 X10*3/uL (4.8-10.8)
[2024-05-22 14:56] LABS: Alanine Aminotransferase 18 U/L (0-40); Albumin Level 4.3 g/dL (3.5-5.0); Alkaline Phosphatase 73 U/L (39-117); Anion Gap 12 (12-20); Aspartate Amino Transferase 22 U/L (5-37); Bilirubin Total 0.6 mg/dL (0.0-1.0); Blood Urea Nitrogen 9 mg/dL (9-16); Calcium 9.2 mg/dL (8.4-10.2); Carbon Dioxide 25 mmol/L (22-29); Chloride 101 mmol/L (96-108); Cholesterol 181 mg/dL (<200); Estimated Glomerular Filt Rate > 60; Glucose Random 275 mg/dL (60-115); HDL Cholesterol 51 mg/dL (>40); LDL Cholesterol Calculated 117 mg/dL (<100); Potassium 4.2 mmol/L (3.3-5.1); Sodium 134 mmol/L (135-145); Total Protein 7.5 g/dL (6.5-8.0); Triglycerides 65 mg/dL (<150)
[2024-05-22 14:58] LABS: TSH reflex Free T4 0.28 uIU/mL (0.32-4.0)
[2024-05-22 15:54] LABS: Free T4 (Free Thyroxine) 1.04 ng/dL (0.71-1.85)
== END 2024-05-22 10:23 | disposition home or self-care (01) ==
LOC: HO.CHCLDS 10:22
PROVIDERS: Visit Provider Internal Medicine
DX: E11.40 Type 2 diabetes mellitus with diabetic neuropathy, unspecified (principal); Z79.4 Long term (current) use of insulin; E78.49 Other hyperlipidemia
CPT/HCPCS: 36415; 80053; 80061; 84439; 84443; 85025

== ENCOUNTER 2024-09-02 08:57 | Outpatient (AMB) | payer MEDICARE, SELFPAY ==
--- NOTE | 2024-09-02 09:05 | MHC.OFFVIS ---
Vital Signs 09/02/24 09:06 Height 5 ft 6 in Weight 150 lb BMI 24.2 Intake Visit Reasons: New prob RT hand Middle trigger finger Intake Note: Indra is a 64 year old right hand dominant male who presents today for a new problem visit with complaints of Right Hand Middle Finger Locking and Catching. He reports history of punching a window and had two subsequent surgery to repair tendons and blood vessels. He currently reports that he has had right middle finger locking and catching for many years now with no previous treatments. He does have it happen infrequently on the left hand as well. Allergies Penicillins Allergy (Unknown, Unverified 09/02/24 09:09) UNKNOWN-CHILDHOOD REACTION [facility] Medical History Nicotine dependence, cigarettes, uncomplicated Coronary artery calcification Pulmonary nodules Pneumonitis Dyspnea Recurrent right inguinal hernia Pneumonia Diabetes Surgical History History of hand surgery Social History Alcohol intake: current Alcohol intake frequency: holidays/special occasions only Alcohol type: beer Tobacco use type: Cigarette Cigarettes Per Day: 15 Current occupational status: disabled Physical Exam Vital Signs: BMI result Body Mass Index 24.2 Assessment & Plan Assessment & Plan (1) Trigger finger, right middle finger: Code(s): M65.331 - Trigger finger, right middle finger Category: Medical (2) Trigger finger, right index finger: Code(s): M65.321 - Trigger finger, right index finger Category: Medical Plan History of Present Illness The patient is a 71-year-old female presenting with a follow-up for her left wrist fracture and evaluation of numbness and tingling in her left hand. Her left wrist fracture was identified previously, and she has been in a cast for about one month. Recently, she reported numbness and tingling in the left hand, specifically in the thumb, starting three to four days ago. She describes the sensation as similar to a foot falling asleep. There is no reported pain on palpation, but she experiences discomfort and shooting pain into the forearm during wrist movement. Current imaging shows good bony healing without further displacement. The numbness and tingling are being monitored for possible nerve involvement, with further diagnostic testing considered if symptoms persist beyond four weeks. Review of Systems - Neurological: Reports numbness and tingling in left thumb. Denies any other neurological symptoms. - Musculoskeletal: Reports stiffness in left wrist, especially with motion. Denies pain on palpation of the wrist. Systems reviewed and are negative except as per HPI and below Physical Exam - Musculoskeletal- Left wrist demonstrates no tenderness upon palpation. No swelling noted. Patient exhibits limited range of motion, With flexion to approximately 40 degrees and extension to approximately 20 degrees past neutral. patient reports minor discomfort with the extreme of flexion in the dorsal wrist radiating down to the forearm. numbness along with dorsal aspect of the left thumb Results - Imaging: X-rays show evidence of good bony healing in the left wrist with no further displacement of the fracture. Procedure Plan The patient will transition from a cast to a Velcro wrist splint for daytime activities to support healing and increase range of motion in the left wrist. Gentle exercises are recommended to address stiffness, with a weight limit of two pounds on the affected hand for the next four weeks. Monitoring of the numbness and tingling in the left thumb is necessary, with potential nerve conduction studies if symptoms persist. Referral to occupational therapy is provided to improve wrist range of motion, and a follow-up is planned in four weeks. Patient was informed and verbally consented to the use of an ambient scribe for clinic note documentation during this visit. Discussion Notes I discussed with the patient the current status of her left wrist fracture, highlighting the positive healing observed in her recent x-rays. I explained the transition from a cast to a Velcro wrist splint, emphasizing the importance of supporting her wrist during activities while working on gentle range of motion exercises to alleviate stiffness. We discussed the recent onset of numbness and tingling in her left thumb, which could indicate Carpal Tunnel Syndrome. I informed the patient that further diagnostic tests, such as EMG and nerve conduction studies, would be considered if symptoms continue for more than four weeks, but it is not currently necessary. I referred her to occupational therapy to assist in improving wrist mobility. The patient was advised to limit lifting to two pounds with the affected hand and was informed of the follow-up plan in four weeks. She expressed understanding and agreed to the plan outlined. Patient Instructions - Wear the Velcro wrist splint during daytime activities. - Remove the splint when resting, showering, or sleeping. - Perform gentle range of motion exercises as instructed. - Do not lift more than two pounds with the left hand. - Monitor for changes in numbness and tingling in the left hand. - Attend occupational therapy sessions as scheduled. - Return for a follow-up appointment in four weeks. - Seek care if there is increased pain, swelling, or new symptoms. Coding Level of Care Code Est Pt Level 3 (41814) Diagnoses Trigger finger, right middle finger M65.331 Trigger finger, right index finger M65.321
[2024-09-02 09:06] VITALS: BMI 24.2
--- OUTSIDE RECORDS SUMMARY | 2024-09-02 09:22 | XMS_ITS | Encounter Summary ---
Author Organization [employer] Address [address] [facility] 7t [place] [address] Care Team Providers Care Nuclear Worker Technician Name Role Phone Jeny Christiansen MD Primary Care Provider [phone]- [phone] Ernst Stratton PharmD Unavailable Unavail able Encounter Details Date Type Department Care Team ([facility] st Contact Info) Description 05/26/2024 Orders Only [facility] MED & PEDS [address] [place], [place] [phone] Jeny Christiansen MD [address] [place] [address] Social History Tobacco Use Types Packs/Day Years [...] Upcoming Encounters Date Type Department Care Team ([facility] st Contact Info) Description 10/26/2024 9:15 AM EDT Office Visit [facility] MED & PEDS [address] [place] [address] Jeny Christiansen MD [address] [place] [address] documented as of this encounter Goals Goal Patient Goal Type Associated Problems Recent Progress Patient-Stated? Author Hemoglobin A1c < 7 Result Component 10.9( 11:28 AM EST) No Ernst Stratton, Carol documented as of this encounter Visit Diagnoses Not on filedocumented in this encounter Additional Health Concerns Assessment Noted Time PHQ-9 Depression Total Score: 18 025 11:09 AM EST documented as of this encounter Care Teams Nuclear Worker Technician Relationship Specialty Start Date End Date Jeny Christiansen MD [address] [place] [address] PCP - General Internal Medicine 12/16/15 Ernts Stratton, AlexD [address] [place] [address] Pharmacist Internal Medicine 05/10/22 documented as of this encounter
== END 2024-09-02 09:18 | disposition home or self-care (01) ==
LOC: HO.HOS 08:58
PROVIDERS: PCP Internal Medicine
DX: M65.331 Trigger finger, right middle finger (principal); M65.321 Trigger finger, right index finger
CPT/HCPCS: 99213

== ENCOUNTER → 2024-09-02 08:57 | Outpatient (BNVA) | payer MEDICARE, SELFPAY | PROVIDERS: PCP Internal Medicine | DX: M65.331 Trigger finger, right middle finger (principal); M65.321 Trigger finger, right index finger | CPT/HCPCS: 99212 ==